=== PATIENT | female | born 1950 | race Caucasian/White ===

== ENCOUNTER 2019-09-28 09:28 | Inpatient (IN) | payer MEDICARE ==
[~2019-09-28] VITALS: Ht 162.6 cm; Wt 115.7 kg
--- NOTE | 2019-09-28 10:02 | NUR ---
PT DAUGHTER EDITH Ivy/[phone]. LIVES IN [facility] AND IS CURRENTLY ON DAY 8 OF COVD QUARANTINE. PER DAUGHTER, PT THINKS SHE IS MARRYING ELIECER ET IS WITH HIS TRIPLETS. PT ALSO THINKS [employer] IS PICKING HER UP TODAY TO GO TO A September CELEBRATION IN [place], [place] TO MEET CHELSI WYMAN. 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 SHE BELIEVES HE IS ELIECER REINCARNATED. DAUGHTER FURTHER STATES SHE HAS A TEXT MESSAGE FROM HER MOTHER YESTERDAY STATING SHE IS GOING TO CUT THE BABIES OUT OF HER STOMACH. DAUGHTER IS FEARFUL FOR PT SAFETY. DAUGHTER FURTHER STATES PT IS USUALLY VERY UNCOOPERATIVE WITH CARE.
[2019-09-28 10:14] LABS: BASOPHILS 0.4 % (0-2); EOSINOPHILS 1.4 % (0-7); HEMATOCRIT 46.2 % (36.0-48.0); HEMOGLOBIN 14.4 g/dL (12-16); IMMATURE GRANULOCYTES 0.5 % (0-5); LYMPHOCYTES 25.6 % (15-50); MCH 29.3 pg (26.0-34.0); MCHC 31.2 g/dL (31.0-37.0); MCV 94.1 fL (80.0-100.0); MEAN PLATELET VOLUME 9.4 fL (7.4-10.4); MONOCYTES 6.8 % (2-11); NEUTROPHILS 65.3 % (40-80); PLATELET COUNT 288 10x3/uL (130-400); RBC 4.91 10x6/uL (4.00-5.40); RDW 14.1 % (11.5-14.5); WBC 11.1 10x3/uL (4.8-10.8)
[2019-09-28 10:27] LABS: CALC OSMOLALITY 285 mosm/kg (275-300); CALCIUM 9.2 mg/dL (8.5-10.1); CARBON DIOXIDE 30.1 mmol/L (21.0-32.0); CHLORIDE - SERUM 102 mmol/L (98-107); CREATININE - SERUM 1.1 mg/dL (0.6-1.3); GLUCOSE 144 mg/dL (74-106); POTASSIUM - SERUM 3.9 mmol/L (3.5-5.1); SODIUM 139 mmol/L (136-145); UREA NITROGEN 27 mg/dL (7-18); eGFR NON AFRICAN AMERICAN 52 mL/min (90-120)
[2019-09-28 10:30] LABS: INR 1.09 (0.85-1.17)
[2019-09-28 10:31] LABS: APTT 30.3 SECONDS (22.8-39.4)
[2019-09-28] MEDS ORDERED: COUMADIN1 MG PO (10:39)
[2019-09-28] MEDS ORDERED: GLUCOTROL ER2.5 MG PO (10:39)
[2019-09-28] MEDS ORDERED: COREG12.5 MG PO (10:41)
[2019-09-28] MEDS ORDERED: TORSEMIDE20 MG PO (10:41)
[2019-09-28] MEDS ORDERED: ALDACTONE25 MG PO ×2 (10:42→17:18)
[2019-09-28] MEDS ORDERED: ZOCOR40 MG PO (10:43)
[2019-09-28] MEDS ORDERED: MOBIC7.5 MG PO (10:43)
[2019-09-28] MEDS ORDERED: HYDROCODON-ACE1 EAC2 PO (10:43)
--- NOTE | 2019-09-28 11:04 | NUR ---
ALEXEI WITH JAIL AT PT BEDSIDE. PT SIGNS PAPERWORK FOR SENIOR PSYCH ADMISSION.
[2019-09-28 11:07] LABS: ALKALINE PHOSPHATASE 68 U/L (30-120); ALT (SGPT) 23 U/L (10-68); BILIRUBIN - TOTAL 0.44 mg/dL (0.2-1.3); CHOL - HDL RATIO 7.5 ratio (2.3-4.1); CHOLESTEROL, TOTAL 240 mg/dL (0-200); HDL CHOLESTEROL 32 mg/dL (32-96); MAGNESIUM - SERUM 1.8 mg/dL (1.8-2.4); PROTEIN - SERUM 7.5 g/dL (6.4-8.2); THYROID STIMULATING HORMONE 1.06 uIU/mL (0.36-3.74); TRIGLYCERIDE 403 mg/dL (30-200)
[2019-09-28 11:11] LABS: UDS - AMPHET POSITIVE QUAL (NEGATIVE); UDS - BARB NEGATIVE QUAL (NEGATIVE); UDS - BENZO NEGATIVE QUAL (NEGATIVE); UDS - COCAINE NEGATIVE QUAL (NEGATIVE); UDS - OPIATE POSITIVE QUAL (NEGATIVE); UDS - PCP NEGATIVE QUAL (NEGATIVE); UDS - THC NEGATIVE QUAL (NEGATIVE)
[2019-09-28 11:33] LABS: BILIRUBIN NEGATIVE (NEGATIVE); KETONE NEGATIVE (NEGATIVE); NITRITE NEGATIVE (NEGATIVE); UROBILINOGEN NORMAL (NORMAL)
[2019-09-28 11:34] LABS: BACTERIA MODERATE /hpf (NEGATIVE); EPITHELIAL CELLS 0-5 /hpf (0-5); HYALINE CAST OCC /lpf (NONE SEEN); RED CELLS - URINE RARE /hpf (0-5)
--- NOTE | 2019-09-28 14:00 | NUR ---
PT ADMITTED FROM [facility] ER TO [facility] PER DR. PORTILLO. PT REFUSED TO GIVE ANY INFORMATION ABOUT HERSELF AND MEDICATIONS. PT WAS FOUND IN A DRIVEWAY STATING SHE WAS WITH TRIPLETS BY ELIECER BROUGHT BACK TO LIFE AND SHE WAS GOING TO HAVE TO CUT THE BABIES EYEBALLS OUT. PT STATED PRESIDENT ZAMZAM WAS COMING TO GET HER ON AIRFORCE 1 TO GO TO THE [employer] SHOW. PT STATED SHE WAS A FULL CODE. AMBULATES. PT STATED SHE WAS HER FOR A TEST AND WAS LEAVING.
[2019-09-28 14:34] VITALS: BP 146/69; BMI 43.0
[2019-09-28 14:57] VITALS: BP 146/69
--- NOTE | 2019-09-28 14:57 | NUR ---
NURSE SPOKE WITH DAUGHTER WHO LIVES 3 HOURS AWAY. SHE STATED IN [place] HER MOTHER MOVED HERSELF TO [place] FROM [place]. DAUGHTER STATED THEY HAVE BEEN TRYING TO GET SOMEONE TO GET A BRAIN SCAN FOR A TUMOR BUT SHE KEEPS REFUSING AND THE PROCESS STARTS OVER. SHE STATED HER MOTHER WAS DOING A PAIN CLINIC AND WAS DOCTOR HOPPING SO SHE COULD GET PAIN MEDS.SHE TEXTS FAMILY WITH PARANOID THOUGHTS AND UNABLE TO UNDERSTAND HER THOUGHT PROCESS. HER KNEE SURGERY WAS IN 2006 AND DID NOT KNOW WHY SHE WAS ON PAIN MED. SHE STATED SHE WOULD ATTEMPT TO GAIN A MED LIST AND GIVE US A CALL BACK.
[2019-09-28] MEDS ORDERED: ZOFRAN4 MG PO (17:19)
[2019-09-28] MEDS ORDERED: MECLIZINE HCL25 MG PO (17:20)
[2019-09-28] MEDS ORDERED: COZAAR25 MG PO (17:24)
[2019-09-28] MEDS ORDERED: BETAPACE 120 M120 MG PO (17:24)
[2019-09-28] MEDS ORDERED: MAG-OX 400 MG400 MG PO (17:24)
[2019-09-28] MEDS ORDERED: ZYLOPRIM300 MG PO (17:25)
[2019-09-28] MEDS ORDERED: GLIPIZIDE10 MG PO (17:25)
[2019-09-28] MEDS ORDERED: OMEPRAZOLE40 MG PO (17:26)
[2019-09-28] MEDS ORDERED: MEXITIL 150 MG150 MG PO (17:26)
[2019-09-28] MEDS ORDERED: CELEBREX200 MG PO (17:27)
[2019-09-28] MEDS ORDERED: CARBATROL100 MG PO (17:27)
[2019-09-28] MEDS ORDERED: DIGOXIN250 MCG PO (17:28)
--- NOTE | 2019-09-28 17:51 | NUR ---
NURSE CALLED [facility] IN [place] AND OBTAINED MED LIST. MEDICATIONS ENTERED IN THE COMPUTER.
--- NOTE | 2019-09-28 18:57 | NUR ---
PTS DAUGHTER CALLED TO SEE IF SHE COULD GET HER HOUSE KEYS FROM THE LOCK BOX IN THE ER. [facility] NURSE RELATED THAT [facility] CASHIER GREETER SAID TO ASK HER IF SHE WANTED HER DAUGHTER TO GET HER KEYS. PT STATED "NO I DO NOT. I WANT TO GET MY PURSE TO GET MY COMB AND LIPGLOSS." INFORMED HER THAT SHE COULDNT HAVE HER PURSE WHILE ON THE UNIT AND ITS SAFELY LOCKED UP. INFOMED HER DAUGHTER EDITH, , THAT SHE REFUSED TO GIVE HER THE KEYS. WILL CONTINUE TO MONITOR.
[2019-09-28 20:00] VITALS: BP 127/74
--- NOTE | 2019-09-29 02:15 | NUR ---
B) Patient is alert and oriented to person and being in a hospital, demanding at times, I) Administered scheduled medications as ordered, redirected as needed, R) Mediation compliant, patient asked for several medications that were not on her MAR, infored patient she would need to discuss her medications with her physician, P) Continue plan of care.
[2019-09-29 08:24] VITALS: BP 135/92
--- NOTE | 2019-09-29 11:23 | NUR ---
The patient is hallucinating, she is hearing people that are not there and she is delusional as she believes she got last night and she says "My family are right outside the door and they are trying to pick me up." She is trying to push the buttons on the code box to open the door. The patient ambulates with a walker. She questioned me about all of her medications. She did not want to take the Haldol that has been prescribed. Explained to her that it is something that the would like her to have. Explianed that she can have it pill form or injection. She said she would prefer the pill. She is medication compliant, but she questioned every pill and she has to be observed to take them as she was trying to play with the pills. Continue to observe the patients behavior. Continue POC.
--- NOTE | 2019-09-29 11:56 | NUR ---
The patient asked me to look at her henok area as she believes she has some ingrown hairs that may be infected. Visualized the area and she has no sores or ingrown hairs, she asked me to look at her buttocks. That too was clear. The patient then said "Well, my brought clothes." Explained to her that no there are no clothes. She then said "He's bringing them now." Explained to her that we have to go to the dayroom. She is now trying to toilet, wash her hands and then sat back on the toilet. She is trying to manipulate staff.
--- NOTE | 2019-09-29 16:47 | NUR ---
The patient is trying to convince another female patient to come to the door to meet her . The patient's spouse is not there and in fact the patient does not have a spouse, although, she told Lachelle Paredes APN that she got last night. She told Lachelle that her is "Stewart" The patient is searching and searching for her spouse at every door. Staff have tried to explain that her spouse is not here, but her delusions are real to her.
--- NOTE | 2019-09-29 17:37 | NUR ---
The patient is very delusional she believes her spouse is outside and she wants to walk to the door. Tried to explian to her that he is not here. She is now washing her hands multiple times. Had to stop her as she continued to do it. She is walking the hallway now with her walker.
[2019-09-29 20:02] VITALS: BP 141/78
--- NOTE | 2019-09-29 21:46 | NUR ---
B.) PT IS ALERT AND ORIENTED TO SELF AND PLACE. SHE HAS POOR INSIGHT INTO HER SITUATION. SHE IS DEMANDING WITH STAFF AT TIMES. SHE IS OBSERVED TALKING TO HERSELF. I.) PROVIDED PM MEDICATIONS PRESCRIBED. REDIRECT NEEDED. R.) COMPLIANT WITH ALL MEDICATIONS. DIFFICULT TO REDIRECT AT TIMES. P.) WILL CONTINUE TO MONITOR.
--- NOTE | 2019-09-30 00:20 | NUR ---
PT RESTLESS AND PREOCCUPIED WITH THINGS IN HER ROOM. SHE RELATED THAT SHE IS ANXIOUS AND CANNOT GO TO SLEEP. ADMINISTERED PRN IM ATIVAN 0.5 MG PER ORDERS. WILL CONTINUE TO MONITOR.
--- NOTE | 2019-09-30 00:45 | NUR ---
PT RESTING CALMLY IN BED. NO DISTRESS NOTED. WILL CONTINUE TO MONITOR
[2019-09-30 13:48] VITALS: BP 120/58
--- NOTE | 2019-09-30 15:02 | NUR ---
ORIENTED TO SELF.OBSERVED TALKING WITH SOMEONE WHO WAS NOT VISIBLE TO STAFF.TEARFUL AT TIMES.COMPLIANT WITH STAFF AND MEDS.AMBULATES WITH WALKER.WILL CONTINUE WITH CURRENT PLAN OF CARE,MONITOR FOR CHANGES AND SAFETY.
--- NOTE | 2019-09-30 19:18 | PSY ---
PATIENT NAME:CURLY MARQUES MEDICAL RECORD: [id number] : 54 LOCATION:[id number] ADMISSION DATE: 09/28/19 ACCOUNT: [id number] PSYCHIATRIC EVALUATION DATE OF EVALUATION: 09/28/19 IDENTIFYING DATA: Ms. Marques is a 69-year-old female who looks moderately disheveled and older than her stated age. CHIEF COMPLAINT: I am , increased confusion and paranoia. HISTORY OF PRESENT ILLNESS: It is reported that the patient recently moved herself from [place] to [place], [place]. The patient believes that she has been impregnated by Stewart Manrique. The patient has begun stalking a man and was picked up by police at one time and released and then picked up again and referred for psychiatric care. The patient thinks that she is going to Stewart with his triplets. She also thinks that the [employer] is picking her up to go to a 28 of September celebration at [place], [place] to meet Jed Johnson. The man that she was talking with a waste elimination in [place]. She believes that he is the one that Stewart reincarnated. Conversation with daughter stated that the patient had sent her a text yesterday stating that she is going to cut the babies out of her stomach. Daughter reports they have been trying to get her a brain scan, but the patient has been refusing any medical care. The patient refuses to provide any information. PAST MEDICAL HISTORY: The patient has had a knee replacement. The patient reports that she also has had a cardiac history. The patient reports that she is a diabetic and she has cardiomyopathy and high blood pressure. PAST PSYCHIATRIC HISTORY: The patient denies any past mental health issues. TRAUMA: The pt refuses to discuss. FAMILY HISTORY: The patient will not communicate. ALLERGIES: INCLUDE BENZALKONIUM CHLORIDE. MEDICATIONS: We are currently looking for a list. Daughter was not able to articulate which medication the patient was on. The patient does states that she believes that she was on Sotalol and also she takes Tylenol and glipizide and Cerebyx. SOCIAL HISTORY: The patient reports that she is , that she has 3 children and 7 grandchildren. 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 The patient reports that in the , she worked for the [employer]. 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 The patient denies any alcohol, smoking or recreational drug use. MENTAL STATUS EXAM: The patient is alert and oriented to person, place and time. Disoriented to situation and events. The patient's speech is pressured. The patient's eye contact is good. Her posture is within normal limits. There is not any evidence of psychomotor retardation or agitation. Her mood is depressed, very anxious. Her affect is restricted. The patient does not exhibit any suicidal ideation or homicidal ideation. The patient does not appear to be attending to either visual or auditory hallucinations, but does have delusions. Her thought processes are tangential. Her memory, concentration, and abstraction abilities are moderately impaired. She denies that she will harm herself or others. The patient is highly impulsive and has impaired judgment. Strength: Ability to communicate her needs Liability: Psychosocial stressors ASSESSMENT: Traer I: ACUTE Psychosis. Traer II: Deferred Traer III: DM DJD CHF GERD Traer IV: Moderate Traer V: Global assessment of functioning is 30 PLAN: The patient has voluntarily consented to admission. The patient does not stabilize and continue to voluntarily consent to admission remain may be need to consider a 72-hour hold. Case management is trying to contact family to obtain more patient history. The patient is admitted to the hospital secondary to her delusions of being , her behaviors and confused behaviors associated with a dementing illness or psychiatric illness. She will be comprehensively evaluated from both a medical, psychological, and social standpoint. She will be treated with both mood stabilizing, cognitive and memory enhancing medications. Her long-term prognosis is guarded. Dictated By: Lachelle Paredes APN I have interviewed/examined the above patient and agree with these documented findings. TRANSINT:[id number] Voice Confirmation ID: [id number] DOCUMENT ID: [id number] Dictated By: LACHELLE PAREDES I have interviewed/examined the above patient and agree with these documented findings. ELKE PORTILLO MD at 1918 at 1119 CC: [id number] DICTATION DATE: 09/28/19 1731 SECOND HELPER: 09/28/19 2249 ADM IN [facility] [address] [place] [id number]
--- NOTE | 2019-09-30 19:55 | NUR ---
RECEIVED IN DAYROOM. SITTING IN A CHAIR WITH PEERS AT HER SIDE. CALM AND COOPERATIVE WITH CARE AND ASSESSMENT. NO DELSUIONAL STATEMENTS VOICED AT THIS TIME. REDIRECT AND REORIENT NEEDED. CONTINUES TO SIT CALMLY IN DAYROOM. CONTINUE PLAN OF CARE.
[2019-09-30 20:24] VITALS: BP 129/80
[2019-10-01 08:41] VITALS: BP 153/92
[2019-10-01 10:23] VITALS: Ht 162.6 cm; Wt 115.7 kg
[2019-10-01 20:10] VITALS: BP 119/69
--- NOTE | 2019-10-01 21:42 | NUR ---
RECEIVED IN DAYROOM. SITTING IN A CHAIR WITH PEERS AT HER SIDE. CALM AND COOPERATIVE WITH CARE AND ASSESSMENT. NO DELSIONAL STATEMENTS VOICED THIS EVENING. ENCOURAGE TO EXPESS NEEDS. RESTING IN BED WITH EYES CLOSED AT THIS TIME. CONTINUE PLAN OF CARE.
[2019-10-02 11:40] VITALS: BP 141/76
--- NOTE | 2019-10-02 12:13 | NUR ---
RECEIVED IN HALLWAY OUTSIDE OF NURSES STATION. CALM AND COOPERATIVE WITH CARE AND ASSESSMENT. STILL BELEIVES SHE GOT TO ELIECER. REDIRECT AND REOREINT NEEDED. EATING AT THIS TIME. CONTINUE PLAN OF CARE.
[2019-10-02 20:53] VITALS: BP 149/67
--- NOTE | 2019-10-02 21:57 | NUR ---
RECEIVED IN DAYROOM. SITTING IN A CHAIR WITH PEERS AT HER SIDE. RESISTANT TO CARE AT TIMES. RESTLESS. NO SIGNS OF AGGRESSION. REDIRECT AND REORIENT NEEDED. SITTING OUTSIDE OF NURSES STATION IN RECLINER AT THIS TIME. CONTINUE PLAN OF CARE.
--- NOTE | 2019-10-02 22:24 | NUR ---
RECEIVED IN DAYROOM. SITTING IN A CHAIR WITH PEERS AT HER SIDE. CALM AND COOPERATIVE WITH CARE AND ASSESSMENT. DEMANDING AT TIMES. STATES HEADAHCE AND GENERALIZED PAIN OF 7. TYLENOL 650 MG PO PRN GIVEN FOR PAIN. RESTING IN BED EYES OPEN AT THIS TIME. CONTINUE PLAN OF CARE.
--- NOTE | 2019-10-03 08:15 | NUR ---
RECEIVED IN HALLWAY OUTSIDE OF NURSES STATION. VERY ANXIOUS AND AGITATED. SCREAMING. EXIT SEEKING. BANGING ON DOORS. YELLING AT STAFF THAT SHE IS CURLY KLEIN AND HER IS ELIECER KLEIN AND WE CANNOT LOCK HER OUT OF HER OWN HOUSE AND KEEP HER OUT OF THE LIBERTARIAN THAT IS GOING ON IN HER HOUSE. BECAME AGGRESSIVE AND VIOLENT WITH REDIRECTION ATTEMPTS. UNABLE TO REDIRECT. PRN ATIVAN 0.5 MG IM AND PRN HALDOL 2 MG IM GIVEN. PATIENT YELLING AT STAFF THAT SHE IS WITH TRIPLETS AND IF THE ATIVAN OR HALDOL HARMS ANY OF THE BABIES THEN HER AND HER ELIECER KLEIN WILL RAH THE HOSPITAL. WILL CONTINUE TO MONITOR.
[2019-10-03 09:19] VITALS: BP 136/80
--- NOTE | 2019-10-03 14:11 | NUR ---
Nutrition Follow-up: Diet: Diabetic PO intake: ~87% average x last 9 meals Last BM: none recorded since admit x 5 days Wt: 248.4# (10/01/19); Admit WT: 250# (09/28/19) Meds noted: remeron, glipizide. Labs noted: POC Glu 139(H) Recommend continue current diet. RD following.
--- NOTE | 2019-10-03 16:20 | NUR ---
PATIENT ANXIOUS AND AGITATED AGAIN. BECAME AGGRESSIVE WITH REDIRECTION. PRN ATIVAN AND HALDOL GIVEN.
[2019-10-03 20:03] VITALS: BP 129/60
--- NOTE | 2019-10-04 00:29 | NUR ---
B.) PT IS ALERT AND ORIENTED TO SELF ONLY. SHE IS USING A WALKER TO ASSIST WITH AMBULATION. SHE RELATED TO STAFF THAT SHE HAD GIVEN IN THE BATHROOM AND THE BABY IS STUCK. SHE DENIES IS WHEN ASKED BY STAFF. SHE IS HALLUCINATING VISUALLY. I.) PROVIDED PM MEDICATIONS PRESCRIBED. REDIRECT OFTEN. R.) COMPLIANT WITH ALL MEDICATIONS. DIFFICULT TO REDIRECT AT TIMES. P.) WILL CONTINUE TO MONITOR.
[2019-10-04 09:36] VITALS: BP 132/73
--- NOTE | 2019-10-04 12:18 | NUR ---
SPOKE TO PT DAUGHTER ABOUT HOW SHE HAD BEEN. NURSE GAVE AN UPDATE FROM THE NIGHT. SHE IS STILL HAVING HALLUNCINATIONS AND DELUSIONS THINKING SHE IS HAVING BABIES. SHE IS COMPLIANT WITH MEDS AND WITH REQUESTS FROM THE STAFF. SHE VERBALIZIED UNDERSTANDING ABOUT HER SITUATION. SHE THANKED US.
--- NOTE | 2019-10-04 14:18 | NUR ---
B) PATIENT IS ANXIOUS AND ALERT TO SELF ONLY. CALM AND COOPERATIVE WITH CARE AND ASSESSMENT. SHE IS TALKING TO VOICES TO UNSEEN OTHERS. I) PRESCRIBED MEDICATIONS ADMINISTERED. REDIRECT AND REORIENT NEEDED. R) COMPLIANT WITH MEDICATIONS. PLEASANT AND SOCIAL WITH PEERS AND STAFF. P) CONTINUE PLAN OF CARE.
[2019-10-04 20:19] VITALS: BP 128/86
--- NOTE | 2019-10-05 00:57 | NUR ---
RECEIVED PATIENT IN DAYROOM, SHE WAS PLEASANT, SHE CAN MAKE HER NEEDS KNOWN, COMPLIANT WITH MED, HOWEVER DURING SHOWER TIME SHE BECAME ARGUMENTATIVE, BENEFITS EXPLAINED TO HER, SHE THEN WAS CONFUSED AND WAS PUSHING NUMBERS ON THE KEYPAD TRYING TO GET OUT AND SHE WAS EASILY REDIRECTED TO HER ROOM.
--- NOTE | 2019-10-05 04:29 | NUR ---
PATIENT WAS GIVEN HALDOL AND ATIVAN AROUND 2 AM FOR EXTREME PSYCHOSIS AND ANXIETY. SHE WAS UNDERNEATH HER SINK HOLDING ON TO THE PLUMBING BECAUSE THE THOUGHT IT WAS A TORNADO AND SHE WAS ALSO EXIT SEEKING. RESULTS WERE EFFECTIVE.
[2019-10-05 14:10] VITALS: BP 155/68
--- NOTE | 2019-10-05 18:45 | NUR ---
The patient is bizarre in her behavior today. She is ambulating on her walker. She is pleasant, but she is attending to her voices as she covers her mouth and she is looking over her shoulder. Asked her if she slept, she said "Oh, I slept go." Provide prescribed meds. The patient is compliant with meds. Continue POC.
[2019-10-05 20:08] VITALS: BP 145/76
--- NOTE | 2019-10-06 04:29 | NUR ---
RECEIVED IN DAYROOM SOCIALIZING WITH PEERS. CALM AND COOPERATIVE WITH CARE AND ASSESSMENT. REDIRECT AND REORIENT NEEDED. COMPLIANT WITH MEDICATIONS. WILL CONTINUE PLAN OF CARE.
[2019-10-06 09:54] VITALS: BP 135/72
--- NOTE | 2019-10-06 10:24 | NUR ---
The patient is bizarre in behavior. She has poor insight into her situation. She is attending, but it is less as she is sleeping. She is watchful. Provide prescribed meds. The patient is compliant with meds. She likes to drink water all day long. Provide prescribed meds. The patient is compliant with meds. 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 Continue POC.
--- NOTE | 2019-10-06 18:10 | NUR ---
PT DAUGHTER CALLED AND PASSCODE GIVEN. NURSE REPORTED PT WAS DOING BETTER TODAY WITH NO BIZARRE STATEMENTS REPORTED. WHEN NURSE GAVE PT THE PHONE SHE STATED THAT SHE WAS CRYING CAUSE SHE WAS WAITING FOR HER CHILDREN TO CALL HER. SHE SPOKE WITH DAUGHTER AND STATED SHE FELT BETTER AND SHE WAS HAPPY SHE CALLED.
[2019-10-06 20:00] VITALS: BP 169/81
--- NOTE | 2019-10-06 23:38 | NUR ---
PATIENT IN HALLWAY. TOOK OFF RUNNING INTO ROOM. ATTEMPTED TO GET UNDER SINK. VERY CONFUSED. INCREASING ANXIETY. PRN ATIVAN 0.5 MG IM GIVEN FOR ANXIETY. PRN HALDOL 2 MG IM GIVEN FOR UNSAFE PSYCHOTIC BEHAVIOR. CONTINUE TO MONITOR FOR SAFETY.
[2019-10-07 09:18] VITALS: BP 114/54
--- NOTE | 2019-10-07 12:00 | NUR ---
RECEIVED IN HALLWAY OUTSIDE OF NURSES STATION. CALM AND COOPERATIVE WITH CARE AND ASSESSMENT. NO DELUSIONAL STATEMENTS MADE TODAY. REDIRECT AND REORIENT NEEDED. EATING AT THIS TIME. CONTINUE PLAN OF CARE.
--- NOTE | 2019-10-07 19:44 | NUR ---
RECEIVED IN DAYROOM. SITTING IN A RECLINER WITH PEERS AT HER SIDE. CALM AND COOPERATIVE WITH CARE AND ASSESSMENT. NO DELSUIONAL STATEMENTS VOICED THIS EVENING. REDIRECT AND REORIENT NEEDED. CONTINUES TO SIT CALMLY IN DAYROOM. CONTINUE PLAN OF CARE.
[2019-10-07 20:06] VITALS: BP 139/56
--- NOTE | 2019-10-08 12:00 | NUR ---
RECEIVED IN HALLWAY OUTSIDE OF NURSES STATION. CALM AND COOPERATIVE WITH CARE AND ASSESSMENT. PATIENT HALLUCINATING AND TALKING TO UNSEEN OTHERS. PATIENT STATES TO STAFF THAT SHE IS NOT WITH TRIPLETS AND THAT SHE WAS JUST FANTASIZING ABOUT HAVING MORE CHILDREN WITH ELIECER. REDIRECT AND REORIENT NEEDED. EATING AT THIS TIME. CONTINUE PLAN OF CARE.
[2019-10-08 19:51] VITALS: BP 127/75
--- NOTE | 2019-10-08 20:35 | NUR ---
RECEIVED IN DAYROOM. SITTING IN A CHAIR WITH PEERS AT HER SIDE. CALM AND COOPERATIVE WITH CARE AND ASSESSMENT. NO SIGNS OF HALLUCINATIONS. REDIRECT AND REORIENT NEEDED. CONTINUES TO SIT CALMLY IN DAYROOM. CONTINUE PLAN OF CARE.
--- NOTE | 2019-10-09 07:15 | NUR ---
REC'D PT IN BED WITH EYES OPEN. PT DEMANDING STAFF TO LEAVE ROOM AND REFUSED TO GET OUT OF BED. STAFF EXPLAINED TO PT THAT ALL PTS HAVE TO GET UP AND ATTEND BREAKFAST. PT BECAME AGGRESSIVE WITH STAFF AT THIS TIME. PRN ATIVAN 0.5 MG IM AND HALDOL 2MG IM GIVEN PER PRN ORDERS. REDIRECTED AND REORIENTED NEEDED. PT PUT HER SELF IN THE FLOOR AND REFUSED TO GET UP. PT ASSISTED UP PER STAFF TO RECLINING CHAIR. FALL PRECAUTIONS IN PLACE. WILL CPOC.
[2019-10-09 10:00] VITALS: BP 90/48
--- NOTE | 2019-10-09 12:00 | NUR ---
RECEIVED IN HALLWAY OUTSIDE OF NURSES STATION. CALM AND COOPERATIVE WITH CARE AND ASSESSMENT. STILL HALLUCINATING AND TALKING TO UNSEEN OTHERS. VERY DELUSIONAL. REDIRECT AND REORIENT NEEDED. EATING AT THIS TIME. CONTINUE PLAN OF CARE.
[2019-10-09 14:08] LABS: HEMOGLOBIN 13.8 g/dL (12-16); LYMPHOCYTES 27.8 % (15-50); MCH 29.7 pg (26.0-34.0); MCHC 32.1 g/dL (31.0-37.0); MCV 92.7 fL (80.0-100.0); MEAN PLATELET VOLUME 9.6 fL (7.4-10.4); NEUTROPHILS 67.5 % (40-80); PLATELET COUNT 323 10x3/uL (130-400); RBC 4.64 10x6/uL (4.00-5.40); RDW 13.5 % (11.5-14.5); WBC 11.2 10x3/uL (4.8-10.8)
--- NOTE | 2019-10-09 15:08 | PN ---
PATIENT:CURLY MARQUES MEDICAL RECORD: [id number] LOCATION:[facility] ADMISSION DATE: 09/28/19 PROGRESS NOTE DATE OF SERVICE: 10/08/2019 SUBJECTIVE: The patient's case was discussed with staff. She has no new complaint. OBJECTIVE: The patient is mostly oriented. Her mood is euthymic. Her affect is appropriate. Thought processes are circumstantial. Memory, concentration, and abstraction abilities are impaired. ASSESSMENT: Dementia. PLAN: Brief supportive and educational interventions were made. The patient's current medications have been reviewed. I am going to reduce the dose of her Geodon. I am also going to start her on Namenda. TRANSINT:[id number] Voice Confirmation ID: [id number] DOCUMENT ID: [id number] ELKE PORTILLO MD at 1508 CC: [id number] DICTATION DATE: 10/08/19 1518 COMMERCIAL REAL ESTATE ATTORNEY: 10/08/19 2329 ADM IN [place] [id number] [place] [id number]
[2019-10-09 20:11] VITALS: BP 137/82
--- NOTE | 2019-10-09 20:43 | NUR ---
RECEIVED IN DAYROOM. SITTING IN A CHAIR WITH PEERS AT HER SIDE. CALM AND COOPERATIVE WITH CARE AND ASSESSMENT. NO SIGNS OF AGGRESSION. REDIRECT AND REORIENT NEEDED. CONTINUES TO SIT CALMLY IN DAYROOM. CONTINUES TO SIT CALMLY IN DAYROOM. CONTINUE PLAN OF CARE.
[2019-10-10 10:28] VITALS: BP 143/60
--- NOTE | 2019-10-10 11:23 | NUR ---
Nutrition Follow-up: Diet: Diabetic PO intake: ~81% average x last 9 meals Last BM: 10/05/19. Wt: 250# (10/07/19); Admit Wt: 250# (09/28/19) Meds noted: glipizide, MagOx. Labs noted: POC Glu 137(H) Recommend continue current diet. RD following.
--- NOTE | 2019-10-10 11:42 | NUR ---
The patient is awake and alert. Have not noted her attending to voices. The patient ambulates independently. She is calm and pleasant. She denies any suicidal ideations. Provide prescribed meds. The patient is compliant with meds. Continue POC.
--- NOTE | 2019-10-10 15:43 | NUR ---
PT DAUGHTER CALLED TO GET AN UPDATE AND TO CHECK VISITING HOURS.
--- NOTE | 2019-10-10 16:23 | PN ---
PATIENT:CURLY MARQUES MEDICAL RECORD: [id number] LOCATION:[facility] ADMISSION DATE: 09/28/19 PROGRESS NOTE DATE OF SERVICE: 10/09/2019 SUBJECTIVE: The patient's case was discussed with staff. She has no new complaint. OBJECTIVE: The patient is in good behavioral control, but earlier was quite agitated. She has been aggressive, but has not risen to the level of requiring p.r.n. medication. The patient came to us with paperwork indicating she had schizophrenia. She does not have schizophrenia. There is no psychiatric longitudinal history that she reports her family confirms this. Her clinical presentation is not consistent with schizophrenia. It is consistent with dementia. The delusion she had on presentation are associated with a dementing process and not an underlying thinking disorder. ASSESSMENT: Senile dementia of the Alzheimer's type with behavioral disturbances. PLAN: The patient's medications have been reviewed. She will be maintained on antipsychotic medication because of her agitation. I will titrate the dose of the Namenda upward. Arrangements are being made to assist with placement. TRANSINT:[id number] Voice Confirmation ID: [id number] DOCUMENT ID: [id number] ELKE PORTILLO MD at 1623 CC: [id number] DICTATION DATE: 10/09/19 1526 CONTROLS DESIGNER: 10/09/19 2135 ADM IN [facility] [address] [place] [address]
[2019-10-10 20:00] VITALS: BP 125/59
--- NOTE | 2019-10-10 20:46 | NUR ---
RECEIVED IN DAYROOM. SOCIALIZING WITH OTHER PATIENTS. CALM AND COOPERATIVE WITH CARE AND ASSESSMENT. NO BEHAVIORS AND NO DELUSIONAL STATEMENTS MADE. REDIRECT AND REORIENT NEEDED. PARTICIPATING IN GROUP AT THIS TIME. CONTINUE PLAN OF CARE.
[2019-10-11 10:11] VITALS: BP 173/77
--- NOTE | 2019-10-11 11:55 | NUR ---
PT REFUSED TO SPEAK WITH DR. PORTILLO OVER ZOOM DURING ROUNDING STATING "THATS MY DOCTOR. ANNIKA NEVER MET THAT MAN BEFORE." PT REFUSED TO SPEAK WITH DOCTOR AND REFUSED A.M. MEDS. STAFF ATTEMPTED TO REDIRECT HER BEHAVIOR. UNABLE TO DO SO AT THIS TIME.
--- NOTE | 2019-10-11 13:39 | NUR ---
ORIENTED TO SELF ONLY.REFUSING MEDS.STATES"I'M NOT GOING TO TALK ABOUT ANYTING PERSONAL " WHEN ASKED WHERE WE ARE OR ASKED WHY SHE WANT TAKE HER MEDS.NO BEHAVIORS OTHER THAN PREVIOUSLY MENTIONED OBSERVED.WILL CONTINUE WITH CURRENT PLAN OF CARE,MONITOR FOR SAFETY AND CHANGES.
--- NOTE | 2019-10-11 16:51 | PN ---
PATIENT:CURLY MARQUES MEDICAL RECORD: [id number] LOCATION:[facility] ADMISSION DATE: 09/28/19 PROGRESS NOTE DATE OF SERVICE: 10/10/2019 SUBJECTIVE: The patient's case was discussed with staff. She has no new complaint. OBJECTIVE: The patient is in good behavioral control with limited insight about her situation. She tolerates her medicines well. ASSESSMENT: Dementia. PLAN: The patient is calm and cooperative. Current medicines have been reviewed. TRANSINT:[id number] Voice Confirmation ID: [id number] DOCUMENT ID: [id number] ELKE PORTILLO MD at 1651 CC: [id number] DICTATION DATE: 10/10/19 1706 LEAD RAMP SERVICE MAN: 10/10/192001 ADM IN [facility] [address] [place] [address]
--- NOTE | 2019-10-11 17:27 | NUR ---
PT DAUGHTER CAME TO VISIT. PT DID NOT WANT TO SPEAK WITH DAUGHTER. NURSE GAVE DAUGHTER A FACESHEET. DAUGHTER ASKED WHERE THE SHIZOPHERNIA DIAGNOSIS CAME FROM. NURSE CHECKED THE CHART FOR THE PAPERWORK AND DID NOT SEE SAID DIAGNOSIS. NURSE EXPLAINED THE DOCTOR THAT ACCESS TO SOME PAPERWORK WE MIGHT NOT BE ABLE TO SEE. DAUGHTER ASKED IF THE DOCTOR WOULD GIVE HER A CALL. NURSE STATED THAT WE WOULD FIGURE OUT TO DO FAMILY CALLS ON THE ZOOM AND GET BACK WITH THEM. DAUGHTER VERBALIZIED UNDERSTANDING. NURSE EXPLAINED HER BEHAVIOR CHANGED THIS MORNING FROM WHEN THE LADY CAME TO SPEAK WITH HER. PT STATED THAT PERSONAL INFORMATION AND I WONT TALK ABOUT IT." NURSE ALSO EXPLAINED THAT THE PT CANT HOLD IN DEPTH CONVERSIONS SHE WILL STOP TALKING WHEN MORE IN DEPTH QUESTIONS HAPPEN. PT IS GUARDED AND THATS THE PT WAY OF CONCEAL HER MEMORY LOSS. THEY VERBALIZIED SOME UNDERSTANDING.
[2019-10-11 19:36] VITALS: BP 127/61
--- NOTE | 2019-10-12 01:42 | NUR ---
B) Patient is alert and oriented to person and place, needy at times, attention seeking, will follow instructions, I) Administered scheduled medications as ordered, PRN Tylenol 650 mg PO given at 00:35 for generalized pain. R) Medication compliant, sleeping now quietly in her room, P) Continue plan of care.
[2019-10-12 09:41] VITALS: BP 163/78
--- NOTE | 2019-10-12 11:18 | NUR ---
The patient is awake and alert, she is calm. No noting of her attending to voices. She is blunted in affect. She is interacting well in groups today. She ambulates with a walker. Provide prescribed medications. The patient is compliant with meds. She has not made any delusional remarks about or being to Stewart. She has not shown any aggression. Continue POC.
--- NOTE | 2019-10-12 12:20 | NUR ---
NAILA CONTACTED PT'S DTR EDITH TO SCHEDULE PHONE TIME WITH MD ON WEDNESDAY 10/11 AT 1130. NAILA LEFT MESSAGE.
--- NOTE | 2019-10-12 13:12 | PN ---
PATIENT:CURLY MARQUES MEDICAL RECORD: [id number] LOCATION:[facility] ADMISSION DATE: 09/28/19 PROGRESS NOTE DATE OF SERVICE: 10/11/2019 SUBJECTIVE: The patient's case was discussed with staff. She has no new complaint. OBJECTIVE: The patient is impaired cognitively and for some reason, she will not to explain she refused to take her medicines this morning. Staff tells me that she is continuing to be delusional. ASSESSMENT: Dementia. PLAN: The patient presents a significant management problem. If she will not take medications, it is not really possible to treat her. Medications that have been prescribed so far have not been very effective. Attempts to persuade her to participate in treatment and accept medications will continued to be made. TRANSINT:[id number] Voice Confirmation ID: [id number] DOCUMENT ID: [id number] ELKE PORTILLO MD at 1312 CC: [id number] DICTATION DATE: 10/11/19 180 XEROX MACHINE ASSEMBLER: 10/11/19 2107 ADM IN [place] [id number] [place] [address]
[2019-10-12 20:00] VITALS: BP 122/65
--- NOTE | 2019-10-12 21:57 | NUR ---
B.) PT IS ALERT AND ORIENTED TO SELF ONLY. SHE IS ABLE TO VOICE NEEDS AND WANTS. SHE IS ABLE TO AMBULATE ON HER OWN BUT IS UNSTEADY AT TIMES. SHE IS OBSERVED ATTENDING TO AUDITORY HALLUCINATIONS. SHE IS COOPERATIVE WITH STAFF. I.) PROVIDED PM MEDICATIONS PRESCRIBED. REDIRECT OFTEN. R.) COMPLIANT WITH ALL MEDICATIONS. EASY TO REDIRECT. P.) WILL CONTINUE TO MONITOR.
[2019-10-13 09:51] VITALS: BP 137/72
--- NOTE | 2019-10-13 10:09 | NUR ---
The patient is awake this am, she awakens to eat, and take medications. She is quietly attending to her voices. She is not telling staff she is today, but she is talking to someone that is not there and staring blankly. She ambulates with a walker and sometimes does not use it. Provide prescribed meds. The patient is compliant with meds. She is not aggressive today, her affect is flat to blunted. Continue POC.
--- NOTE | 2019-10-13 11:52 | NUR ---
The patient sat in the vanessa chair and urinated. It is all over her upto her neck and the chair. Offered to help her change and shower. She said "No, I'll wait until after lunch." Explained to her that "No, ma'am you are soaked, you can't sit in all these chairs wet." She argued and walked away. Staff assisted her to ambulate with CPI maneuvers to take her to the shower and change. She is behaving in a paranoid manner. She looked around like she was very frightened, but she decided to take a shower as long as she can have her own clothes.
[2019-10-13 20:00] VITALS: BP 135/68
--- NOTE | 2019-10-13 22:45 | NUR ---
B.) PT IS ALERT AND ORIENTED TO SELF AND SITUATION AT TIMES. SHE IS ABLE TO AMBUALTE BUT IS UNSTEADY ON HER FEET. SHE IS RECEIVED IN THE DAYROOM SOCIALIZING WITH PEERS. SHE IS CALM AND COOPERATIVE. NO HALLUCINATIONS NOTED THIS SHIFT. I.) PROVIDED PM MEDICATIONS PRESCRIBED. REDIRECT NEEDED. R.) COMPLIANT WITH ALL MEDICATIONS PRESCRIBED. EASY TO REDIRECT. P.) WILL CONTINUE TO MONITOR.
[2019-10-14 08:44] VITALS: BP 135/86
--- NOTE | 2019-10-14 10:28 | NUR ---
The patient is pleasnt this am, she said today is going to be a better day. She ate her breakfast and now she is laying on the couch. She is having some hallucinations, but she is quieter, she stares blankly and she is watchful. Provide prescribed meds. The patient picks and chooses which meds she will take. Continue POC.
[2019-10-14 19:19] VITALS: BP 135/64
--- NOTE | 2019-10-14 20:03 | NUR ---
RECEIVED IN DAYROOM. SITTING IN A CHAIR WITH PEERS AT HER SIDE. CALM AND COOPERATIVE WITH CARE AND ASSESSMENT. NOT SOCIALIZING WITH PEERS AT THIS TIME. ENCOURAGE TO EXPRESS NEEDS. CONTINUES TO SIT CALMLY IN DAYROOM. CONTINUE PLAN OF CARE.
[2019-10-15 08:46] VITALS: BP 145/75
--- NOTE | 2019-10-15 09:00 | NUR ---
PT IS SITTING IN DAYROOM WITH PEERS. CALM AND COOPERATIVE WITH ASSESSMENT AT THIS. PT NOTED TALKING TO UNSEEN OTHERS. PRESCRIBED MEDS PROVIDED ORDERED. MED COMPLIANT. FALL PRECAUTIONS IN PLACE. WILL CPOC.
--- NOTE | 2019-10-15 20:00 | NUR ---
RECEIVED IN DAYROOM. SITTING IN A CHAIR WITH PEERS AT HER SIDE. CALM AND COOPERATIVE WITH CARE AND ASSESSMENT. ENCOURAGE TO EXPRESS NEEDS. REDIRECT AND REORIENT NEEDED. CONTINUES TO SIT CALMLY IN DAYROOM. CONTINUE PLAN OF CARE.
[2019-10-15 20:18] VITALS: BP 114/79
--- NOTE | 2019-10-16 09:00 | NUR ---
PT RESTING ON COUCH IN DAYROOM. CALM AND COOPERATIVE WITH ASSESSMENT. PRESCRIBED MEDS PROVIDED ORDERED. MED COMPLIANT. PT NOTED TALKING TO UNSEEN OTHERS. FALL PRECAUTIONS IN PLACE. WILL CPOC.
[2019-10-16 09:45] VITALS: BP 172/88
--- NOTE | 2019-10-16 16:37 | PN ---
PATIENT:CURLY MARQUES MEDICAL RECORD: [id number] LOCATION:[facility] ADMISSION DATE: 09/28/19 PROGRESS NOTE DATE OF SERVICE: 10/15/2019 SUBJECTIVE: The patient's case was discussed with staff. She has no new complaint. OBJECTIVE: The patient is partially oriented. She does not want to answer questions. I think it is because she cannot answer them correctly, although there certainly is a paranoid flavor to how she is responding. ASSESSMENT: Dementia. PLAN: The patient will be maintained on current medications, which she is not consistently taking. I talked with her daughter today and the patient does not have a long history of psychiatric treatment. In fact, she has no history of psychiatric treatment, but she does have a long history of not functioning normally. She has always been somewhat hypervigilant, paranoid, odd and difficult to get along with. It has never been enough to bring her to the attention of authorities, but it certainly has interfered with her interpersonal relationships. In my opinion, the patient has dementia. She does have a family history of this with her mother being diagnosed with this disease. I do believe she is going to require [id number]-day supervision. I have discussed this with the daughter as well. TRANSINT:[id number] Voice Confirmation ID: [id number] DOCUMENT ID: [id number] ELKE PORTILLO MD at 1637 CC: [id number] DICTATION DATE: 10/15/19 174 COMMODITIES TRADER: 10/15/190 ADM IN [place] [id number] [place] [address]
[2019-10-16 20:01] VITALS: BP 145/51
--- NOTE | 2019-10-17 02:48 | NUR ---
B) Patient is alert and oriented to person and place, no delusions or hallucinations noted this shift, I) Administered scheduled medications as ordered, monitored for safety R) Mediation compliant, social with peers, follows instructions P) Continue plan of care.
[2019-10-17 07:52] VITALS: BP 171/84
--- NOTE | 2019-10-17 10:18 | NUR ---
The patient did not want to take her medication until she had a carton of milk. She refused to take them until she got the milk. She told Jeronimo Hobbs RN that she did not want her glipizide this am. She waited until this nurse gave it to her. She ambulates independently. She is not showing any indication of hallucinations, but she is bizarre in behavior and she is being demading. Provide prescribed meds. The patient is compliant with meds, but when she chooses. Continue POC.
--- NOTE | 2019-10-17 11:09 | NUR ---
Nutrition Follow-up: Diet: Diabetic PO intake: 100% x last 7 meals Last BM: 10/17/19. WT: 249.4# (10/14/19). Admit Wt: 250# (09/28/19) Meds noted: glipizide, MagOx. Labs noted: POC Glu 103(WNL) Recommend continue current diet. RD following.
--- NOTE | 2019-10-17 13:25 | NUR ---
Spoke to the patient and let her know the DrManuel prescribed a new medication. She said "Well, I'm not gonna take it, but I'll talk to him soon." When I approached the patient she was smiling and talking to unseen others."
[2019-10-17 20:33] VITALS: BP 143/68
--- NOTE | 2019-10-17 21:57 | NUR ---
B.) PT IS ALERT AND ORIENTED TO SELF AND PLACE. SHE IS ABLE TO AMBULATE ON HER OWN AND MAKE HER NEEDS KNOWN. SHE IS CALM AND COOPERATIVE WITH STAFF. SHE REQUESTED A PRN TYLENOL FOR KNEE PAIN. I.) PROVIDED PM MEDICATIONS. REDIRECT NEEDED. R.) COMPLIANT WITH ALL MEDICATIONS. EASY TO REDIRECT. P.) WILL CONTINUE TO MONITOR.
[2019-10-18 08:42] VITALS: BP 140/81
--- NOTE | 2019-10-18 11:03 | NUR ---
The patient is compliant with her medications, but she questions everything. She requests milk and she mentioned being and not wanting to take any new medications because of it. She ambulates, but she c/o knee pain today. She has had mobic and tylenol, see MAR. The patient is noted attending to her voices and she is bizarre in behavior as she stares out and talks to unseen others. Continue POC.
--- NOTE | 2019-10-18 13:32 | PN ---
PATIENT:CURLY MARQUES MEDICAL RECORD: [id number] LOCATION:[facility] ADMISSION DATE: 09/28/19 PROGRESS NOTE DATE OF SERVICE: 10/17/2019 SUBJECTIVE: The patient's case was discussed with staff. She has no new complaint. OBJECTIVE: The patient denies intent to harm herself or others. She is tolerating her medicines well. She is still delusional and was scheduled to be discharged, but continues to have these bizarre delusions. ASSESSMENT: Dementia. PLAN: The patient's medications have been reviewed. She is going to be started on Depakote for mood stabilization. Her long-term prognosis is guarded. TRANSINT:[id number] Voice Confirmation ID: [id number] DOCUMENT ID: [id number] ELKE PORTILLO MD at 1332 CC: [id number] DICTATION DATE: 10/17/19 1318 CORPORATE BOND TRADER: 10/17/19 2241 ADM IN [place] [address] [place] [address]
[2019-10-18 14:54] LABS: BASOPHILS 0.3 % (0-2); EOSINOPHILS 4.6 % (0-7); HEMATOCRIT 41.7 % (36.0-48.0); HEMOGLOBIN 13.4 g/dL (12-16); IMMATURE GRANULOCYTES 1.1 % (0-5); LYMPHOCYTES 28.6 % (15-50); MCH 30.8 pg (26.0-34.0); MCHC 32.1 g/dL (31.0-37.0); MCV 95.9 fL (80.0-100.0); MEAN PLATELET VOLUME 9.4 fL (7.4-10.4); MONOCYTES 5.1 % (2-11); NEUTROPHILS 60.3 % (40-80); PLATELET COUNT 301 10x3/uL (130-400); RBC 4.35 10x6/uL (4.00-5.40); WBC 10.5 10x3/uL (4.8-10.8)
[2019-10-18 15:12] LABS: ANION GAP 9.4 mmol/L (8-16); CALCIUM 8.5 mg/dL (8.5-10.1); CARBON DIOXIDE 32.2 mmol/L (21.0-32.0); CREATININE - SERUM 0.9 mg/dL (0.6-1.3); POTASSIUM - SERUM 3.6 mmol/L (3.5-5.1)
--- NOTE | 2019-10-18 16:57 | NUR ---
The patient moves from one chair to another. She is listening to her voices and she got up and walked across the room and went and sat by another patient. She keeps moving from one chair to the next multiple times over and over.
[2019-10-18 20:06] VITALS: BP 113/60
--- NOTE | 2019-10-19 01:23 | NUR ---
B) Patient is alert and oriented to person, laying on couch watching TV I) Administered scheduled medications as ordered, monitored for behaviors R) Mediation compliant, PRN Tylenol 650 mg PO given at 20:43 P) Continue plan of care.
[2019-10-19 09:11] VITALS: BP 159/85
--- NOTE | 2019-10-19 09:40 | NUR ---
The patient refused her depakote from Christiano Blakely RN. She is still seen attending to her voices, she is reacting better when she is approached by staff. She is pleasant and she interacts with the nursing students well. She has not made any paranoid statements or actions. Provide prescribed meds. The patient is compliant with meds. Continue POC.
--- NOTE | 2019-10-19 10:00 | NUR ---
PT REFUSED TO TAKE DEPAKOTE THIS A.M. PT STATED SHE HAS THE RIGHT TO REFUSE MEDS AND SHE IS NOT TAKING IT. NURSE ATTEMPTED TO ENCOURAGE PT TO TAKE MEDICATION. PT REFUSED.
--- NOTE | 2019-10-19 10:39 | NUR ---
The patient must be listening to her voices as she is staring out and then she moves from one chair to the other and then to the couch she is bizarre in her behavior.
--- NOTE | 2019-10-19 11:58 | NUR ---
NURSE ATTEMPTED TO TAKE PT APICAL PULSE AND ADMINISTER MEDICATIONS. PT ATTEMPTED TO REFUSED SEVERAL TIMES. NURSE EDUCATED PT ON REASON FOR APICAL PULSE AND REASON FOR MEDS. PT DID ALLOW ADMINISTER MEDICATION AFTER SEVERAL TIMES.
--- NOTE | 2019-10-19 12:43 | PN ---
PATIENT:CURLY MARQUES MEDICAL RECORD: [id number] LOCATION:[facility] ADMISSION DATE: 09/28/19 PROGRESS NOTE DATE OF SERVICE: 10/18/2019 SUBJECTIVE: The patient's case was discussed with staff. She has no new complaint. OBJECTIVE: The patient continues to be delusional. She refused the labs that was ordered yesterday. When I asked her any questions at all, she refuses to answer saying that it is personal and she is not going to discuss her personal business. For example, simply asking her how old she is, is personable and she would not discuss it. Asking her if she has children, is too personal and she would not discuss it. She becomes angry when asked about being . She is not consistently taking her medications, which is also problematic. She refused the Depakote that I prescribe this morning. I have talked to nursing staff about her compliance and they indicate that when she does take the medicine from them, they feel pretty certain that she is actually swallowing it. TRANSINT:[id number] Voice Confirmation ID: [id number] DOCUMENT ID: [id number] ELKE PORTILLO MD at 1243 CC: [id number] DICTATION DATE: 10/18/19 1400 ENERGY AND CONSERVATION TECHNICIAN: 10/18/19 1750 ADM IN [place] [address] [place] [address]
[2019-10-19 20:10] VITALS: BP 174/78
--- NOTE | 2019-10-20 02:29 | NUR ---
B) RECEIVED IN DAYROOM, SITTING AT TABLE WRITING A LETTER. SHE IS CALM AND COOPERATIVE TONIGHT. NO BEHAVIORS NOTED. I) ADMINISTER PRESCRIBED MEDICATIONS. REDIRECT NEEDED. R) COMPLIANT WITH MEDICATIONS. TYLENTOL 650 MG PO GIVEN FOR GENERALIZED DISCOMFORT. P) CONTINUE POC.
[2019-10-20 09:30] VITALS: BP 141/66
--- NOTE | 2019-10-20 11:27 | NUR ---
RECEIVED SITTING IN CHAIR THIS AM.TOOK SOME OF HER MEDS AND STATED SHE WOULD TAKE THE REST OF THEM TONIGHT.ENCOURAGED HER TO TAKE ALL MEDS AT THIS TIME.SHE DID COMPLY.IS AMBULATORY.KEEPS TO HERSELFWILL CONTINUE WITH CURRENT PLAN OF CARE.DENIES HEARING VOICES TODAY.
--- NOTE | 2019-10-20 18:14 | NUR ---
YELLING I'M GOING TO BE MURDERED TONIGHT.SOMEONE IN THIS FACILITY IS GOING TO MURDER ME TONIGHT.ATTEMPTS TO CALM AND REDIRECT HER UNSUCCESSFUL.SECURITY CALLED AND ATIVAN 0.5MG AND HALDOL 2MG GIVEN IN LEFT DELTOID.
--- NOTE | 2019-10-20 18:59 | NUR ---
GOOD RESPONSE TO ATIVAN AND HALDOL.
--- NOTE | 2019-10-20 19:07 | NUR ---
PT DAUGHTER CALLED AND WANTED TO CHECK ON HOW SHE WAS DOING. NURSE EXPLAINED THAT SHE HAD AN EPISODE WHERE SHE WAS STANDING IN THE MIDDLE OF THE DAYAREA STARTED SCREAMING "SOMEONE HERE IS GONNA KILL ME TONIGHT." PT REPEATED STATEMENTS OVER AND OVER. WE GAVE HIM ATIVAN TO AID IN CALMING HER DOWN. DAUGHTER ASKED TO SPEAK TO PT. NURSE ALLOWED DAUGHTER TO SPEAK WITH HER.
[2019-10-20 19:16] VITALS: BP 123/55
--- NOTE | 2019-10-20 21:11 | NUR ---
B.) PT IS ALERT AND ORIENTED TO SELF AND PLACE. SHE IS ABLE TO VOICE NEEDS AND WANTS. SHE DENIES ANY HALLUCINATIONS. SHE IS TEARFUL AT TIMES. SHE RELATES THAT SHE DOESNT REMEMBER TAKING DEPAKOTE FOR ANY REASON. I.) PROVIDED PM MEDICATIONS PRESCRIBED. REDIRECT NEEDED. R.) COMPLIANT WITH ALL MEDICATIONS. EASY TO REDIRECT. P.) WILL CONTINUE TO MONITOR.
--- NOTE | 2019-10-21 07:45 | NUR ---
REC'D PT IN HALLWAY WITH PEERS BY NURSES STATION. CALM AND COOPERATIVE WITH ASSESSMENT AT THIS TIME. PRESCRIBED MEDS PROVIDED ORDERED. MED COMPLIANT. PT NOTED TALKING TO UNSEEN OTHERS. REDIRECT AND REORIENT NEEDED. FALL PRECAUTIONS IN PLACE. WILL CPOC.
[2019-10-21 09:47] VITALS: BP 133/57
[2019-10-21 20:14] VITALS: BP 127/70
--- NOTE | 2019-10-21 20:17 | NUR ---
RECEIVEDIN DAYROOM. SITTING CALMLY IN DAYROOM WITH PEERS AT HER SIDE. CALM AND COOPERATIVE WITH CARE AND ASSESSMENT. ENCOURAGE TO EXPRESS NEEDS. REDIRECT AND REORIENT NEEDED. CONTINUES TO SIT CALMLY IN DAYROOM. CONTINUE PLAN OF CARE.
--- NOTE | 2019-10-22 02:00 | NUR ---
OUT OF ROOM. VERY CONFUSED. YELLING "SOMEONE IS GOING TO MURDER ME TONIGHT!" OVER AND OVER. REDIRECTED AND REORIENTED.
[2019-10-22 09:19] VITALS: BP 140/90
--- NOTE | 2019-10-22 12:00 | NUR ---
RECEIVED IN HALLWAY OUTSIDE OF NURSES STATION. CALM AND COOPERATIVE WITH CARE AND ASSESSMENT. PATIENT TOLD STAFF MULTIPLE TIMES THAT SHE IS ENGAGED AND ALSO THAT ELIECER'S SON IS COMING TO VISIT HER TOMORROW. REDIRECT AND REORIENT NEEDED. EATING AT THIS TIME. CONTINUE PLAN OF CARE.
[2019-10-22 20:28] VITALS: BP 124/55
--- NOTE | 2019-10-22 22:39 | NUR ---
RECEIVED IN DAYROOM. SITTING IN A WHEELCHAIR QUIETLY WATCHING TV, WHEN SHE GOT UP AND STARTED YELLING " SOMEONE IS GOING TO EUTHANIZE ME TONIGHT!" UNABLE TO REDIRECT OR REORIENT. SHE BECAME VIOLENT WITH STAFF. HITTING AT [facility]. PRN ATIVAN 0.5 MG IN GIVEN FOR ANXIETY AND PRN HALDON 2 MG IM GIVEN FOR UNSAFE PSYCHOTIC BEHAVIOR. PATIENT IS RESTING IN BED WITH EYES CLOSED AT THIS TIME. CONTINUE PLAN OF CARE.
--- NOTE | 2019-10-23 10:02 | PN ---
PATIENT:CURLY MARQUES MEDICAL RECORD: [id number] LOCATION:[facility] ADMISSION DATE: 09/28/19 PROGRESS NOTE DATE OF SERVICE: 10/22/2019 SUBJECTIVE: The patient's case was discussed with staff. She has no new complaint. OBJECTIVE: The patient denies intent to harm herself or others. She does tolerate her medicines well. Unfortunately, she continues to be delusional. She did actually speak with me today and answered some very neutral-type questions and conversation was not particularly hard hitting, but she did speak with me without telling me that even the most simple of questions is too personal. Unfortunately, she did tell me that she is going to be marrying Stewart Manrique when she leaves here. ASSESSMENT: Dementia. PLAN: I am going to maintain the patient on current medicines. I think she is clearly better. I am also going to check a Depakote level. NTS:[id number] Voice Confirmation ID: [id number] DOCUMENT ID: [id number] ELKE PORTILLO MD at 1002 CC: [id number] DICTATION DATE: 10/22/19 1654 BRANCH LEAD: 10/23/19 0026 ADM IN [facility] [address] [place] [address]
[2019-10-23 10:17] VITALS: BP 136/66
--- NOTE | 2019-10-23 12:00 | NUR ---
RECEIVED IN HALLWAY OUTSIDE OF NURSES STATION. CALM AND COOPERATIVE WITH CARE AND ASSESSMENT. STATES SHE IS ENGAGED TO SOMEONE BUT SAYS IT IS NONE OF THE STAFF'S BUSINESS WHO IT IS BECAUSE IT IS HER PERSONAL LIFE. REDIRECT AND REORIENT NEEDED. EATING AT THIS TIME. CONTINUE PLAN OF CARE.
[2019-10-23 20:53] VITALS: BP 128/54
--- NOTE | 2019-10-23 22:03 | NUR ---
RECEIVED IN DAYROOM. SITTING IN A CHAIR WITH PEERS AT HER SIDE. CALM AND COOPERATIVE WITH CARE AND ASSESSMENT. NO DELUSIONAL STATEMENTS VOICED THIS EVENING. REDIRECT AND REORIENT A NEEDED. TRANSFERE TO BEDROOM AREA AT THIS TIME. CONTINUE PLAN OF CARE.
--- NOTE | 2019-10-24 06:28 | NUR ---
PATIENT OUT IN HALLWAY YELLING "SOMONE IS GOING TO EUTHANIZE ME TODAY!" REDIRECT AND REOREINT.
--- NOTE | 2019-10-24 12:51 | NUR ---
pt sitting watching t.v. at this time. pt is alert and oriented to person, place. pt has some confusion noted at times. previous shift reported behaviors. no behaviors noted at this time. pt was compliant with meds, vitals and assessments. pt can make needs known. will cont plan of care.
--- NOTE | 2019-10-24 13:27 | PN ---
PATIENT:CURLY MARQUES MEDICAL RECORD: [id number] LOCATION:[facility] ADMISSION DATE: 09/28/19 PROGRESS NOTE DATE OF SERVICE: 10/23/2019 SUBJECTIVE: The patient's case was discussed with staff. She has no new complaint. OBJECTIVE: The patient denies intent to harm herself or others. She is tolerating her medicines well. ASSESSMENT: Dementia. PLAN: Brief supportive and educational interventions were made. Long-term prognosis is guarded. The patient's Depakote level was low, I am going to increase the dose. TRANSINT:[id number] Voice Confirmation ID: [id number] DOCUMENT ID: [id number] ELKE PORTILLO MD at 1327 CC: [id number] DICTATION DATE: 10/23/19 1607 MANAGER OF PATIENT: 10/23/19 2326 ADM IN [place] [id number] [place] [id number]
--- NOTE | 2019-10-24 14:01 | NUR ---
Nutrition Follow-up: Diet: Diabetic PO intake: 100% x last 6 meals Last BM: 10/23/19. Wt: 247.2# (10/21/19); Admit Wt: 250# (09/28/19) Meds noted: glipizide. Labs noted: POC Glu 109(WNL) Recommend continue current diet. RD following.
[2019-10-24 14:18] VITALS: BP 145/75
--- NOTE | 2019-10-24 16:44 | NUR ---
PT IN DAY ROOM PACING STATING "SOMEONE TURN OFF MY DEFIBRILLATOR. SOMEONE IS TRYING TO KILL ME. SOMEOEN IS TRYING TO KILL ME TONIGHT." STAFF ATTEMPTED TO REDIRECT PTS BEHAVIOR MULTIPLE TIMES. UNABLE TO REDIRECT BEHAVIOR. PT IS RESTLESS STATING SOMEONE IS GOING TO KILL HER. WE DONT UNDERSTAND THAT SOMEONE IS TRYING TO KILL ME." ATIVAN 0.5 MG IM AND HALDOL [address] PORTILLO ORDER FOR ANXIETY. PT DID NOT TOLERATE VERY WELL. WILL CONT TO MONITOR FOR EFFECTIVENESS.
--- NOTE | 2019-10-24 17:50 | NUR ---
PRN EFFECTIVE AT THIS TIME. WILL CONT TO MONITOR.
[2019-10-24 20:00] VITALS: BP 125/63
--- NOTE | 2019-10-24 22:00 | NUR ---
RECEIVED IN DAYROOM, LYING ON SOFA WITH EYES CLOSED. AROUSED FOR ASSESSMENT. SOME CONFUSION NOTED, BUT NO BEHAVIORS AT THIS TIME. ADMINISTER PRESCRIBED MEDICATIONS. PATIENT PICKS EACH MEDICATION AND REFUSES TO TO TAKE EXTRA DOSE OF DEPAKOTE 500 MG PO. SHE INSISTS THAT 1500 MG A DAY IS TOO MUCH AND SHE IS GOING TO TALK WITH THE DOCTOR ABOUT IT. REDIRECT AND REORIENT NEEDED. CONTINUE PLAN OF CARE.
[2019-10-25 09:40] VITALS: BP 108/54
--- NOTE | 2019-10-25 10:44 | NUR ---
PT SITTING ON COUCH AT THIS TIME. PT IS CONFUSED. ALERT TO SELF ONLY. NURSE WAS ADMINSTERING MEDS THIS A.M. NURSE NOTED THAT PT PUT PILLS INTO HER POCKET. NURSE ASKED PT TO EMPTY HER POCKETS. PT COMPLIED AND 2 PILLS WERE IN PT POCKETS. PT TOOK THE MEDS STATING "I WAS NOT SURE ABOUT THOSE." PT DID REFUSE MEDS ON THE PREVIOUS SHIFT. STAFF ENCOURGAGE HER TO TAKE MEDS. PT IS PARANOID AND ISOLATIVE. ATTEMPT TO REDIRECT PTS BEHAVIOR. AT TIMES ABLE TO REDIRECT. PT IS CONFUSED AND DISORIENTED. PT CAN MAKE NEEDS KNOWN. AMBULATES. WILL CONT PLAN OF CARE.
--- NOTE | 2019-10-25 14:39 | PN ---
PATIENT:CURLY MARQUES MEDICAL RECORD: [id number] LOCATION:[facility] ADMISSION DATE: 09/28/19 PROGRESS NOTE DATE OF SERVICE: 10/24/2019 SUBJECTIVE: The patient's case was discussed with staff. She has no new complaint. OBJECTIVE: The patient continues to be delusional and at times labile. She is angry. ASSESSMENT: Dementia. PLAN: At this time, I am going to change the patient over to a high potency antipsychotic. The Geodon has not been sufficiently effective. TRANSINT:[id number] Voice Confirmation ID: [id number] DOCUMENT ID: [id number] ELKE PORTILLO MD at 1439 CC: [id number] DICTATION DATE: 10/24/19 1624 TABLE GAMES DUAL RATE SUPERVISOR: 10/25/19 0053 ADM IN [facility] [address] [place] [address]
[2019-10-25 20:04] VITALS: BP 118/43
--- NOTE | 2019-10-25 22:07 | NUR ---
PT CAME OUT OF HER ROOM SCREAMING "YOUR GOING TO KILL ME TONITE." SHE STATES SHE IS GOING TO BE HEARD. ADMINISTERED IM ATIVAN 0.5 MG. WILL CONTINUE TO MONITOR.
--- NOTE | 2019-10-25 22:10 | NUR ---
PT IS ALERT AND ORIENTED TO SELF, PLACE AND SITUATION. SHE IS ABLE TO ABULATE WITHOUT ASSIST. SHE IS ATTEMPTING TO REFUSE HER HS MEDICATIONS. SHE STATES SHE DOESNT WANT TO TAKE THE PILLS OR THE SHOT. AFTER REDIRECT SHE TOOK THE HALDOL DECONATE INJ AND THEN HER MEDICATIONS. WE DISCUSSED NOT POCKETING HER PILLS AND FROM NOW ON HER MEDICATIONS WILL BE CLOSELY MONITORED FOR COMPLIANCE. SHE IS DIFFICULT TO REDIRECT. WILL CONTINUE TO MONITOR.
--- NOTE | 2019-10-25 22:40 | NUR ---
PT IS RESTING IN BED WITH EYES CLOSED. NO SIGNS OF DISTRESS NOTED. WILL CONTINUE TO MONITOR.
[2019-10-26 09:22] VITALS: BP 133/45
--- NOTE | 2019-10-26 10:33 | PN ---
PATIENT:CURLY MARQUES MEDICAL RECORD: [id number] LOCATION:[facility] ADMISSION DATE: 09/28/19 PROGRESS NOTE DATE OF SERVICE: 10/25/2019 SUBJECTIVE: The patient's case was discussed with staff. She has no new complaint. OBJECTIVE: The patient was caught cheeking her medications. I suspect she has been doing this for some time. Her Depakote level is actually quite somewhat low given the dose that she is taking. ASSESSMENT: Dementia. PLAN: I am going to give the patient a long-acting antipsychotic injection. She will be monitored for clinical changes associated with its use. TRANSINT:[id number] Voice Confirmation ID: [id number] DOCUMENT ID: [id number] ELKE PORTILLO MD at 1033 CC: [id number] DICTATION DATE: 10/25/19 1453 ANESTHESIOLOGIST: 10/25/19 2214 ADM IN [place] [id number] [place] [address]
--- NOTE | 2019-10-26 11:42 | NUR ---
The patient is paranoid in her thoughts. She says "I am worried about my meds, I am supposed to be on carbatolol and potassium, I think I may ." Tried to explain to her that her Dr. knows what she needs to be on. She said "Yea, but I haven't taken Simvastatin in years, it makes my legs cramp, and I know I need my potassium and carbatolol." Explained to her that we will talk to the Dr. about it. She spoke to me twice about it, once while giving her am meds and then again when she asked me for water. Provide prescribed meds. The patient took her meds, but this nurse watched her take all of her meds. Continue POC.
[2019-10-26 20:10] VITALS: BP 113/56
--- NOTE | 2019-10-26 21:52 | NUR ---
B.) PT IS ALERT AND ORIENTED TO SELF ONLY. SHE RELATES THAT SHE FEELS ANXIOUS AND LIKE YELLING OUT. SHE HAS SHIFTING GAZES AND APPEARS SUSPICIOUS OF PEERS. SHE IS ABLE TO AMBULATE WITHOUT ASSIST. I.) PROVIDED PM MEDICATIONS AND PRN ATIVAN IM 0.5MG. REDIRECT NEEDED. R.) COMPLIANT WITH ALL MEDICATIONS. EASY TO REDIRECT AT THIS TIME. P.) WILL CONTINUE TO MONITOR.
--- NOTE | 2019-10-26 22:15 | NUR ---
PT IS RESTING CALMLY IN BED WITH EYES CLOSED. NO DISTRESS NOTED. WILL CONTINUE TO MONITOR.
[2019-10-27 08:27] VITALS: BP 139/57
--- NOTE | 2019-10-27 09:33 | NUR ---
Sat with the patient this am and watched her take each pill individually. She is awake and she is not near as paranoid as she has been. Her affect is more reactive. She ambulates independently. She is watching TV and has not made any comment about being , but she is not admitting to her previous behavior that got her here. She said "I was on someone's property too long, I was waiting for a friend, and they called the police on me." Provide prescribed meds. The patient is compliant with meds. Continue POC.
--- NOTE | 2019-10-27 10:14 | NUR ---
dr. baker here to eval pts feet per consult. pt tolerated well.
--- NOTE | 2019-10-27 11:28 | PN ---
PATIENT:CURLY MARQUES MEDICAL RECORD: [id number] LOCATION:[facility] ADMISSION DATE: 09/28/19 PROGRESS NOTE DATE OF SERVICE: 10/26/2019 SUBJECTIVE: The patient's case was discussed with staff. She has no new complaint. OBJECTIVE: The patient received a Haldol Decanoate shot, her scheduled Haldol has been substantially increased. I strongly suspect that she has not been consistently taking her medications. By that, I mean I believe she has been cheeking them. She is now on 1500 mg a day of Depakote. I would certainly expect her blood level to be somewhere in the range of 90-110. I am going to check her blood level. TRANSINT:[id number] Voice Confirmation ID: [id number] DOCUMENT ID: [id number] ELKE PORTILLO MD at 1128 CC: [id number] DICTATION DATE: 10/26/19 1538 STOCKROOM KEEPER: 10/27/19 0059 ADM IN [address] [place] [address]
--- NOTE | 2019-10-27 19:06 | PN ---
PATIENT:CURLY MARQUES MEDICAL RECORD: [id number] LOCATION:[facility] ADMISSION DATE: 09/28/19 PROGRESS NOTE DATE OF SERVICE: 10/27/2019 SUBJECTIVE: The patient's case was discussed with staff. She has no new complaint. OBJECTIVE: The patient is oriented and cooperative today. She is somewhat dismissive as she is wanting to watch a television show and I have interrupted her. She was agitated last night and did receive p.r.n. medication. ASSESSMENT: Dementia. PLAN: The patient will have a Depakote level checked. This will be a gauge of medication compliance. TRANSINT:[id number] Voice Confirmation ID: [id number] DOCUMENT ID: [id number] ELKE PORTILLO MD at 1906 CC: [id number] DICTATION DATE: 10/27/19 1234 SUPPLIER QUALITY SPECIALIST: 10/27/19 1251 ADM IN [place] [address] [place] [address]
[2019-10-27 20:00] VITALS: BP 133/64
--- NOTE | 2019-10-27 21:02 | NUR ---
B.) PT IS ALERT AND ORIENTED TO SELF ONLY. SHE HAS POOR INSIGHT INTO HER SITUATION. SHE IS CALM AND COOPERATIVE WITH STAFF. SHE IS ABLE TO AMBULATE ON HER OWN BUT HAS A VERY UNSTEADY GAIT. I.) PROVIDED PM MEDICATIONS PRESCRIBED. REDIRECT NEEDED. R.) COMPLIANT WITH ALL MEDICATIONS. EASY TO REDIRECT. P.) WILL CONTINUE TO MONITOR.
[2019-10-28 10:50] VITALS: BP 147/67
--- NOTE | 2019-10-28 11:50 | NUR ---
The patient is awake and alert this am, she has not made any delusional statements about or someone trying to kill her. She says she slept well. She is ambulating independently. Provide prescribed medications, the patient is compliant with her medications. She requests that staff tell her what her medications are. Her affect is blunted at times, but she is more reactive. Continue POC.
--- NOTE | 2019-10-28 20:07 | NUR ---
RECEIVED IN DAYROOM. SITTING IN A CHAIR WITH PEERS AT HER SIDE. CALM AND COOPERATIVE WITH CARE AND ASSESSMENT. NO SIGNS OF AGGRESSION. REDIRECT AND REORIENT NEEDED. CONTINUES TO STI CALMLY IN DAYROOM. CONTINUE PLAN OF CARE.
[2019-10-28 20:37] VITALS: BP 126/47
[2019-10-29 09:21] VITALS: BP 133/73
--- NOTE | 2019-10-29 11:21 | NUR ---
PT IS SITTING ON COUCH ATTENDING GROUP AT THIS TIME. ASSESSMENT COMPLETED. PRESCRIBED MEDS PROVIDED ORDERED. MED COMPLIANT. AWAKE AND ALERT TO PERSON, PLACE, AND TIME. NO BEHAVIORS NOTED AT THIS TIME. REDIRECT AND REORIENT NEEDED. FALL PRECAUTIONS IN PLACE. WILL CPOC.
[2019-10-29 19:13] LABS: BASOPHILS 0.3 % (0-2); EOSINOPHILS 1.5 % (0-7); HEMOGLOBIN 12.7 g/dL (12-16); LYMPHOCYTES 27.8 % (15-50); MCH 29.7 pg (26.0-34.0); MCV 95.8 fL (80.0-100.0); MEAN PLATELET VOLUME 9.6 fL (7.4-10.4); MONOCYTES 6.7 % (2-11); NEUTROPHILS 62.7 % (40-80); PLATELET COUNT 276 10x3/uL (130-400); RBC 4.28 10x6/uL (4.00-5.40); RDW 13.6 % (11.5-14.5)
[2019-10-29 19:31] LABS: CALCIUM 8.5 mg/dL (8.5-10.1); CARBON DIOXIDE 32.7 mmol/L (21.0-32.0); POTASSIUM - SERUM 3.7 mmol/L (3.5-5.1); VALPROIC ACID (DEPAKOTE) 51.3 ug/mL (50.0-100.0)
[2019-10-29 20:05] VITALS: BP 117/40
--- NOTE | 2019-10-30 02:30 | NUR ---
B) Patient is alert and oriented to person and place, calm and cooperative this shift I) Administered scheduled medications as ordered, monitored for safety R) Mediation compliant, social with staff, P) Continue plan of care.
--- NOTE | 2019-10-30 08:21 | PN ---
PATIENT:CURLY MARQUES MEDICAL RECORD: [id number] LOCATION:[facility] ADMISSION DATE: 09/28/19 PROGRESS NOTE DATE OF SERVICE: 10/29/2019 SUBJECTIVE: The patient's case was discussed with staff. She has no new complaint. OBJECTIVE: The patient is calm and cooperative. She is not making any delusional statements. I suspect she still has these delusional beliefs about being , but I am not going to bring it up because it tends to aggravate her or upset her. I am viewing it as a big improvement that she is not constantly ruminating about this and I think given her overall circumstances, she is manageable in a long-term care setting and has improved. I have reviewed her medicines and I am going to maintain her on current medicines. I will check a Depakote level. TRANSINT:[id number] Voice Confirmation ID: [id number] DOCUMENT ID: [id number] ELKE PORTILLO MD at 0821 CC: [id number] DICTATION DATE: 10/29/19 1636 AIR HAMMER OPERATOR: 10/29/19 2328 ADM IN [facility] [address] [place] [address]
[2019-10-30 09:53] VITALS: BP 152/80
--- NOTE | 2019-10-30 15:48 | NUR ---
PT SITTING IN CHAIR WATCHING T.V. AT THIS TIME. PT IS CALM AND COOPERATIVE. PT IS COMPLIANT WITH MEDS, VITALS AND ASSESSMENT. PT AMBULATES PER SELF. NO BEHAVIORS NOTED AT THIS TIME. PT ALERT AND ORIENTED TO PERSON, PLACE AND TIME. PT IS DISORIENTED TO SITUATION. WILL CONT PLAN OF CARE.
[2019-10-30 20:28] VITALS: BP 141/79
--- NOTE | 2019-10-30 22:47 | NUR ---
B) Patient is alert and oriented to person, place and time. Calm and cooperative this shift I) Administered scheduled medications as ordered, assisted with needs, PRN Tylenol 650 mg PO given at 21:30 R) Mediation compliant, sleeping now quietly in her bed P) Continue plan of care.
[2019-10-31 09:16] VITALS: BP 147/77
--- NOTE | 2019-10-31 11:08 | NUR ---
REC'D PT IN DAYROOM WITH PEERS. PT IS ATTENDING GROUP AT THIS TIME. CALM AND COOPERATIVE WITH ASSESSMENT. PRESCRIBED MEDS PROVIDED ORDERED. MED COMPLIANT. NO BEHAVIORS NOTED AT THIS TIME. REDIRECT AND REORIENT NEEDED. FALL PRECAUTIONS IN PLACE. WILL CPOC.
--- NOTE | 2019-10-31 15:58 | PN ---
PATIENT:CURLY MARQUES MEDICAL RECORD: [id number] LOCATION:[facility] ADMISSION DATE: 09/28/19 PROGRESS NOTE DATE OF SERVICE: 10/30/2019 SUBJECTIVE: The patient's case was discussed with staff. She has no new complaint. OBJECTIVE: The patient is in good behavioral control with poor insight about her situation. She tolerates her medicines well. ASSESSMENT: Dementia. PLAN: Current medicines and therapies have been reviewed and will be maintained. Long-term prognosis is guarded. She can be transitioned out of the hospital as soon as arrangements have been made for her placement. [employer] [facility] [facility] has not given her approval yet. TRANSINT:[id number] Voice Confirmation ID: [id number] DOCUMENT ID: [id number] ELKE PORTILLO MD at 1558 CC: [id number] DICTATION DATE: 10/30/19 1537 SURGICAL FORCEPS FABRICATOR: 10/31/19 0010 ADM IN [facility] [address] [place] [address]
--- NOTE | 2019-10-31 16:16 | NUR ---
Nutrition Follow-up: Diet: Diabetic PO intake: 100% x all Last BM: 10/27/19. Wt: 250.6# (10/28/19); Admit Wt: 250# (09/28/19) Meds noted: glipizide, MagOx. Labs noted: POC Glu 91(WNL) Recommend continue current diet. RD following.
[2019-10-31 20:01] VITALS: BP 107/44
--- NOTE | 2019-10-31 23:54 | NUR ---
B) Patient is alert and oriented to person, place and time, calm and cooperative, follows instructions I) Administered scheduled medications as ordered, assisted with needs, R) mediation compliant, pleasant and quiet, auditory hallucinations after going to her room at night p) Continue plan of care.
[2019-11-01 09:25] VITALS: BP 135/49
--- NOTE | 2019-11-01 10:28 | NUR ---
The patient is pleasant and cooperative, she is calm and she has not made any delusional statements, have not seen her attending to her voices. Provide prescribed meds. The patient is compliant with meds. Continue POC.
--- NOTE | 2019-11-01 12:01 | PN ---
PATIENT:CURLY MARQUES MEDICAL RECORD: [id number] LOCATION:[facility] ADMISSION DATE: 09/28/19 PROGRESS NOTE DATE OF SERVICE: 10/31/2019 SUBJECTIVE: The patient's case was discussed with staff. She has no new complaint. OBJECTIVE: The patient is in good behavioral control. She is eating and sleeping well. She has no thoughts of self-harm. She does not mention anything delusional and I have been refraining from asking her if she is because it tends to make her angry. Given the fact that she is so much more interactive and not talking about things that are delusional, I am going to not bring this up unless it is necessary. I think she is very appropriate for long term placement and does not have any evidence of dangerousness to herself or others. TRANSINT:[id number] Voice Confirmation ID: [id number] DOCUMENT ID: [id number] ELKE PORTILLO MD at 1201 CC: [id number] DICTATION DATE: 10/31/19 1610 DINING ROOM SERVER: 11/01/19 0320 ADM IN [place] [address] [place] [id number]
[2019-11-01 21:22] VITALS: BP 132/64
--- NOTE | 2019-11-01 22:19 | NUR ---
B) Patient is alert and oriented to person, place and time, calm and cooperative I) Administered scheduled medications as ordered, PRN Tylenol 650 mg PO given at 20:12, monitored for safety R) Mediation compliant, resting quietly in bed now, P) Continue plan of care.
--- NOTE | 2019-11-02 07:59 | NUR ---
The patient is awake and she is alert, she has not made any bizarre comments today about grandiose delusions. She is calm and has not been paranoid in thought. She ambulates independently. Provide prescribed meds. The patient is knowledgable in her medications and she knows what they are for and what they look like. Staff to watch her take her medications. Continue to monitor her behavior. Continue POC.
[2019-11-02 09:07] VITALS: BP 141/66
--- NOTE | 2019-11-02 13:20 | PN ---
PATIENT:CURLY MARQUES MEDICAL RECORD: [id number] LOCATION:[facility] ADMISSION DATE: 09/28/19 PROGRESS NOTE DATE OF SERVICE: 11/01/2019 SUBJECTIVE: The patient's case was discussed with staff. She has no new complaint. OBJECTIVE: The patient is partially oriented. She is denying delusions and thoughts of harming herself or others. ASSESSMENT: Dementia. PLAN: The patient can be transitioned out of the hospital as soon as she is medically stable. Her long-term prognosis is guarded. TRANSINT:[id number] Voice Confirmation ID: [id number] DOCUMENT ID: [id number] ELKE PORTILLO MD at 1320 CC: [id number] DICTATION DATE: 11/01/19 1617 ENGINEERING GROUP MANAGER: 11/01/19 2337 ADM IN [facility] [address] [place] [address]
--- NOTE | 2019-11-02 20:30 | NUR ---
B) PATIENT IS ALERT AND ORIENTED TO PERSON, CALM AND COOPERATIVE. SHE HAS HAD NO STRANGE BEHAVIORS TONIGHT. I) ADMINISTERED SCHEDULED MEDICATIONS. REDIRECT NEEDED. SELF AMBULATORY. R) MEDICATION COMPLIANT. TYLENOL 1000 MG PO GIVEN FOR GENERALIZED ACHES. P) CONTINUE PLAN OF CARE.
[2019-11-02 21:05] VITALS: BP 116/63
--- NOTE | 2019-11-03 12:24 | NUR ---
CALM AND COOPERATIVE.ORIENTED TO SELF WITH CONFUSION.COMPLIANT WITH MEDS AND STAFF TODAY.WILL QUESTION MEDS.NO BEHAVIORS OBSERVED .WILL CONTINUE WITH CURRENT PLAN OF CARE,MONITOR FOR CHANGES AND SAFETY.
[2019-11-03 14:20] VITALS: BP 114/53
--- NOTE | 2019-11-03 23:26 | NUR ---
RECEIVED PATIENT IN DAYROOM, SHE STAYS TO HERSELF, COMPLIANT WITH MEDS, CAN MAKE ALL NEEDS KNOWN. BIZARRE. WILL FOLLOW POC
[2019-11-04 08:53] VITALS: BP 138/62
--- NOTE | 2019-11-04 15:45 | NUR ---
PT IS SITTING IN DAYROOM WITH PEERS. CALM AND COOPERATIVE WITH ASSESSMENT. PRESCRIBED MEDS PROVIDED ORDERED. MED COMPLIANT. NO BEHAVIORS NOTED. WILL CPOC.
[2019-11-04 19:36] VITALS: BP 137/61
--- NOTE | 2019-11-04 22:26 | NUR ---
B) patient is alert and oriented to person, place and time, calm and cooperative, I) Administered scheduled medications as ordered, R) Medication compliant, no behaviors noted, P) Continue plan of care.
[2019-11-05 09:08] VITALS: BP 139/57
--- NOTE | 2019-11-05 17:18 | NUR ---
PT IS SITTING AT DINING ROOM TABLE WITH PEERS. CALM AND COOPERATIVE WITH ASSESSMENT. PRESCRIBED MEDS PROVIDED ORDERED. MED COMPLIANT. REDIRECT AND REORIENT NEEDED. WILL CPOC.
--- NOTE | 2019-11-05 19:35 | NUR ---
RECEIVED IN DAYROOM. SITTING ON THE SOFA KEEPING TO HERSELF. YELL OUT AT TIMES THAT SHE IS NOT GOING TO TAKE MEDS. CALM AND COOPERATIVE WITH CARE AND ASSESSMENT. CONTINUES TO SIT ON SOFA. CONTINUE PLAN OF CARE.
--- NOTE | 2019-11-05 19:42 | NUR ---
RECEIVED IN DAYROOM. SITTING IN A CHAIR WITH PEERS AT HER SIDE. CALM AND COOPERATIVE WITH CARE AND ASSESSMENT. ENCOURAGE TO EXPRESS NEEDS. REDIRECT AND REOREINT NEEDED. CONTINUES TO SIT CALMLY IN DAYROOM. CONTINUE PLAN OF CARE.
[2019-11-05 20:10] VITALS: BP 145/64
--- NOTE | 2019-11-06 08:22 | PN ---
PATIENT:CURLY MARQUES MEDICAL RECORD: [id number] LOCATION:[facility] ADMISSION DATE: 09/28/19 PROGRESS NOTE DATE OF SERVICE: 11/05/2019 SUBJECTIVE: The patient's case was discussed with staff. She has no new complaint. OBJECTIVE: The patient is in good behavioral control. She is impaired cognitively. She has no thoughts of harming herself or others. ASSESSMENT: Dementia. PLAN: The patient is in need of 40-kahb-m-day supervision. The problem is placement and the placement is complicated because of the COVID pandemic. TRANSINT:[id number] Voice Confirmation ID: [id number] DOCUMENT ID: [id number] ELKE PORTILLO MD at 0822 CC: [id number] DICTATION DATE: 11/05/19 173 STAIN REMOVER: 11/06/19 0136 ADM IN [facility] [address] [place] [id number]
[2019-11-06 10:07] VITALS: BP 149/75
--- NOTE | 2019-11-06 16:23 | NUR ---
PT SITTING IN CHAIR WATCHING T.V. PT IS CALM AND COOPERTIVE WITH STAFF AND PEERS. PT IS COMPLIANT WITH MEDS, VITALS AND ASSESMENT. PT CAN MAKE NEEDS KNOWN. NO BEHAVIORS NOTED. REDIRECT AND REORIENT NEEDED. AMBULATES. WILL CONT PLAN OF CARE.
--- NOTE | 2019-11-06 19:48 | NUR ---
RECEIVED IN DAYROOM. SITTING IN A CHAIR WITH PEERS AT HER SIDE. SOCIAL AT TIMES. CALM AND COOPERATIVE WITH CARE AND ASSESSMENT. NO DELUSIONAL STATEMENTS VOICED. ENCOURAGE TO EXPRESS NEEDS. SITTING CALMLY IN DAYROOM AT THIS TIME. CONTINUE PLAN OF CARE.
[2019-11-06 19:52] VITALS: BP 122/51
[2019-11-07 08:36] VITALS: BP 148/79
--- NOTE | 2019-11-07 09:07 | PN ---
PATIENT:CURLY MARQUES MEDICAL RECORD: [id number] LOCATION:[facility] ADMISSION DATE: 09/28/19 PROGRESS NOTE DATE OF SERVICE: 11/06/2019 SUBJECTIVE: The patient's case was discussed with staff. She has no new complaint. OBJECTIVE: The patient is in good behavioral control. She has poor insight about her situation. She has not been disruptive or aggressive. ASSESSMENT: Dementia. PLAN: The patient can be transitioned out of the hospital as soon as placement is arranged. There are complicating factors associated with this and that has been documented numerous times. TRANSINT:[id number] Voice Confirmation ID: [id number] DOCUMENT ID: [id number] ELKE PORTILLO MD at 0907 CC: [id number] DICTATION DATE: 11/06/19 1623 METHODS AND PROCEDURES ANALYST: 11/07/[address] [facility] [address] [place] [address]
--- NOTE | 2019-11-07 11:43 | NUR ---
pt sitting in chair in day room. pt is alert to place. confusion noted. redirect and reorient as needed. pt is calm and cooperative. no behaviors noted. pt can make needs known. ambulates. compliant with meds, vitals and assessments. will cont plan of care.
--- NOTE | 2019-11-07 14:54 | NUR ---
Nutrition Follow-up: Diet: Diabetic PO intake: 100% x all meals Last BM: 11/03/19. Wt: 254# (11/04/19); Admit Wt: 250# (09/28/19) Meds noted: glipizide. Labs noted: POC Glu 99(WNL) Recommend continue current diet. MD may consider adding bowel regimen. RD following.
[2019-11-07 20:27] VITALS: BP 115/48
--- NOTE | 2019-11-07 20:44 | NUR ---
RECEIVED PATIENT IN DAYROOM, CALM, NOT CONFUSED AT THIS TIME. SHE STAYS TO HERSELF AND IS ABLE TO MAKE ALL OF HER NEEDS KNOWN. WILL FOLLOW POC. COMPLIANT WITH MEDS. NO ADVERSE REACTION NOTED.
[2019-11-08 11:19] VITALS: BP 105/41
--- NOTE | 2019-11-08 13:19 | PN ---
PATIENT:CURLY MARQUES MEDICAL RECORD: [id number] LOCATION:[facility] ADMISSION DATE: 09/28/19 PROGRESS NOTE DATE OF SERVICE: 11/07/2019 SUBJECTIVE: The patient's case was discussed with staff. She has no new complaint. OBJECTIVE: The patient is in good behavioral control. She has poor insight about her situation, but she has not been disruptive. ASSESSMENT: Dementia. PLAN: The patient may be transitioned out of the hospital as soon as placement is arranged. TRANSINT:[id number] Voice Confirmation ID: [id number] DOCUMENT ID: [id number] ELKE PORTILLO MD at 1319 CC: [id number] DICTATION DATE: 11/07/19 1644 LEGEND MAKER: 11/07/19 2344 ADM IN [place] [address] [place] [address]
--- NOTE | 2019-11-08 16:44 | NUR ---
ORIENTED TO SELF AND PLACE.CONFUSION PRESENT.IS COMPLIANT WITH STAFF AND MEDS.CAN BE NEEDY AT TIMES.WILL CONTINUE WITH CURRENT PLAN OF CARE,MONITOR FOR CHANGES AND SAFETY.NO BEHAVIORS OBSERVED.
[2019-11-08 20:09] VITALS: BP 127/45
--- NOTE | 2019-11-09 06:55 | NUR ---
PATIENT PLEASANT, CALM, COMPLIANT WITH MEDS. NO COMPLAINTS. STAYS TO HERSELF
--- NOTE | 2019-11-09 11:04 | NUR ---
The patient is awake and alert, she is pleasant and calm, she denies hallucinations and she is not showing any signs of attending. She is ambulating independently. Provide presribed meds. The patient is compliant with meds. The patient is oriented x3, she does not question her meds. She follows direction well. Continue POC.
--- NOTE | 2019-11-09 12:57 | PN ---
PATIENT:CURLY MARQUES MEDICAL RECORD: [id number] LOCATION:[facility] ADMISSION DATE: 09/28/19 PROGRESS NOTE DATE OF SERVICE: 11/08/2019 SUBJECTIVE: The patient's case was discussed with staff. She has no new complaint. OBJECTIVE: The patient's condition is unchanged. She is appropriate for discharge. Once arrangements have been made for discharge, she is safe to leave the hospital. TRANSINT:[id number] Voice Confirmation ID: [id number] DOCUMENT ID: [id number] ELKE PORTILLO MD at 1257 CC: [id number] DICTATION DATE: 11/08/19 1709 INJECTION MOLDING MACHINE OPERATOR: 11/09/19 0220 ADM IN [place] [id number] [place] [id number]
[2019-11-09 16:17] VITALS: BP 133/83
[2019-11-09 19:57] VITALS: BP 122/55
--- NOTE | 2019-11-09 21:42 | NUR ---
B.) PT IS ALERT AND ORIENTED TO SELF, PLACE AND SITUATION. SHE IS ABLE TO AMBULATE WITHOUT ASSIST. SHE IS CALM AND COOPERATIVE WITH STAFF. SHE RELATES THAT SHE IS TIRED TODAY. I.) PROVIDED PM MEDICATIONS PRESCRIBED. REDIRECT NEEDED. R.) COMPLIANT WITH ALL MEDICATIONS. EASY TO REDIRECT. P.) WILL CONTINUE TO MONITOR.
[2019-11-10 10:10] VITALS: BP 122/53
--- NOTE | 2019-11-10 13:32 | NUR ---
The patient is awake and alert, she asks about throat lozenges as she has them ordered every 2 hours. She ambulates independently. She has not made any mention of delusions. Provide prescribed meds. The patient is compliant with meds. She does not ask about her medications now, she is not showing any paranoia. Continue POC.
[2019-11-10 20:00] VITALS: BP 131/57
--- NOTE | 2019-11-10 22:18 | NUR ---
B.) PT IS ALERT AND ORIENTED TO SELF AND SITATION. SHE IS DEMANDING AT TIMES. SHE IS ABLE TO AMBUALTE ON HER OWN WITHOUT ASSIST. SHE IS ABLE TO VOICE NEEDS. I.) PROVIDED PM MEDICATIONS PRESCRIBED. REDIRECT NEEDED. R.) COMPLIANT WITH ALL MEDICATIONS. EASY TO REDIRECT. P.) WILL CONTINUE TO MONITOR.
[2019-11-11 09:09] VITALS: BP 162/75
--- NOTE | 2019-11-11 11:36 | NUR ---
RECEIVED IN HALLWAY OUTSIDE OF NURSES STATION. CALM AND COOPERATIVE WITH CARE AND ASSESSMENT. NO BEHAVIORS. REDIRECT AND REORIENT NEEDED. EATING AT THIS TIME. CONTINUE PLAN OF CARE.
--- NOTE | 2019-11-11 19:56 | NUR ---
RECEIVED IN DAYROOM. SITTING IN A CHAIR WITH PEERS AT HER SIDE. CALM AND COOPERATIVE WITH CARE AND ASSESSMENT. NO DELUSIONAL STATEMENTS VOICED. REDIRECT AND REOREINT NEEDED. CONTINUES TO SIT CALMLY IN DAYROOM. CONTINUE PLAN OF CARE.
[2019-11-11 20:00] VITALS: BP 137/55
[2019-11-12 08:58] VITALS: BP 145/65
--- NOTE | 2019-11-12 09:13 | NUR ---
SW SPOKE TO PT'S DTR, EDITH, TO UPDATE ON DISCHARGE PLANNING. PT HAS BEEN DENIED BY FIRST CHOICE [facility] AND [facility]. SW CONTINUES TO WAIT ON RESPONSES FROM OTHER TWO NURSING [facility] AND [facility] AND [facility]. SW DID DISCUSS DUE TO COVID AND PT'S BEHAVIORAL HISTORY NURSING HOMES CLOSER TO THE AREA REQUESTED MIGHT NOT BE POSSIBLE. SW WILL WIDEN REFERRAL LOCATION IF MORE DECLINES HAPPEN IN [facility]. EDITH VOICED UNDERSTANDING OF DISCUSSION.
--- NOTE | 2019-11-12 12:00 | NUR ---
RECEIVED IN HALLWAY OUTSIDE OF NURSES STATION. CALM AND COOPERATIVE WITH CARE AND ASSESSMENT. NEEDY AND DEMANDING AT TIMES. REDIRECT AND REORIENT NEEDED. EATING AT THIS TIME. CONTINUE PLAN OF CARE.
--- NOTE | 2019-11-12 19:37 | NUR ---
RECEIVED IN DAYROOM. SITTING IN A CHAIR WITH PEERS AT HER SIDE. CALM AND COOPERATIVE WITH CARE AND ASSESSMENT. NO DELUSIONAL STATEMENTS VOICED. REDIRECT AND REORIENT NEEDED. CONTINUES TO SIT CALMLY IN DAYROOM. CONTINUE PLAN OF CARE.
[2019-11-12 20:06] VITALS: BP 110/65
[2019-11-12 20:12] VITALS: BP 110/65
[2019-11-13 09:34] VITALS: BP 159/75
--- NOTE | 2019-11-13 09:50 | PN ---
PATIENT:CURLY MARQUES MEDICAL RECORD: [id number] LOCATION:[facility] ADMISSION DATE: 09/28/19 PROGRESS NOTE DATE OF SERVICE: 11/12/2019 SUBJECTIVE: The patient's case was discussed with staff. She has no new complaint. OBJECTIVE: The patient has no clinical change from previous notes. ASSESSMENT: Dementia. PLAN: The patient can be discharged at any time. Please see Alphonse's notes for the most current list of nursing homes that have declined her. TRANSINT:[id number] Voice Confirmation ID: [id number] DOCUMENT ID: [id number] ELKE PORTILLO MD at 0950 CC: [id number] DICTATION DATE: 11/12/19 1536 MICROSYSTEMS ENGINEER: 11/12/19 2314 ADM IN [facility] [address] [place] [address]
--- NOTE | 2019-11-13 13:41 | NUR ---
RECEIVED IN HALLWAY OUTSIDE OF NURSES STATION. CALM AND COOPERATIVE WITH CARE AND ASSESSMENT. NO DELUSIONAL STATEMENTS MADE. REDIRECT AND REORIENT NEEDED. IN GROUP AT THIS TIME. CONTINUE PLAN OF CARE.
[2019-11-13 20:43] VITALS: BP 145/60
--- NOTE | 2019-11-13 20:59 | NUR ---
RECEIVED IN DINING AREA. CALM AND COOPERATIVE WITH CARE AND ASSESSMENT. NO DELUSIONAL STATEMENTS VOICED THIS EVENING. REDIRECT AND REORIENT NEEDED. CONTINUES TO SIT CALMLY IN DINING AREA. CONTINUE PLAN OF CARE.
[2019-11-14 09:10] VITALS: BP 129/67
--- NOTE | 2019-11-14 10:04 | NUR ---
NAILA SPOKE TO PT'S DTR, EDITH, TO DISCUSS DISCHARGE PLANNING NEEDS. PT HAS BEEN DENIED BY [facility] AND [facility] IN [place]. PT HAS STABILIZED MORE AND IS LESS APPROPRIATE FOR INTERMEDIATE CARE. PT WOULD BENEFIT FROM [facility] OR LIVING CLOSE TO HER DAUGHTER TO HAVE ASSISTANCE THERE. EDITH STATED SHE WAS GOING TO LOOK INTO [facility] TO SEE IF THEY WILL ACCEPT MEDICAID. EDITH STATED SHE WOULD CONTACT NAILA BACK WITH NEW DISCHARGE PLAN.
--- NOTE | 2019-11-14 12:00 | NUR ---
RECEIVED IN HALLWAY OUTSIDE OF NURSES STATION. CALM AND COOPERATIVE WITH CARE AND ASSESSMENT. DEMANDING AND RUDE AT TIMES. ARGUMENTATIVE. REDIRECT AND REORIENT NEEDED. EATING AT THIS TIME. CONTINUE PLAN OF CARE.
--- NOTE | 2019-11-14 13:39 | NUR ---
NUTRITION FOLLOW UP: COMMENTS: Patient continues to eat well with most meals eaten at 100%. No new lab values recorded since 10/28. Patient has had a weight gain of 3 lbs since last week. DIET: Diabetic diet PO INTAKE: 98% avg for last 9 meals WEIGHT: 11/03- 254 lbs; 11/10- 257 lbs BM: x 1 on 11/10 SIG LABS: None since 10/28 SIG MEDS: Nystatin, Spironolactone, Zocor, Protonix, MagOx RECOMENDATIONS: -Continue current diet as tolerated -Will offer nutritional supplements if po intake becomes < 50% avg for meals -Recommend obtaining new blood labs RD to continue to follow and monitor patient DHS
--- NOTE | 2019-11-14 14:35 | PN ---
PATIENT:CURLY MARQUES MEDICAL RECORD: [id number] LOCATION:[facility] ADMISSION DATE: 09/28/19 PROGRESS NOTE DATE OF SERVICE: 11/13/2019 SUBJECTIVE: The patient's case was discussed with staff. She has no new complaint. OBJECTIVE: The patient's clinical condition is unchanged. ASSESSMENT: Dementia. PLAN: The patient is still awaiting placement. TRANSINT:[id number] Voice Confirmation ID: [id number] DOCUMENT ID: [id number] ELKE PORTILLO MD at 1435 CC: [id number] DICTATION DATE: 11/13/19 1528 SUPERVISOR CHEMICAL: 11/13/19 2346 ADM IN [place] [id number] [place] [id number]
[2019-11-14 20:37] VITALS: BP 104/59
--- NOTE | 2019-11-15 00:25 | NUR ---
B) Patient is alert and oriented to person, place and time, calm and cooperative I) Administered scheduled medications as ordered, assisted wth needs, redirected as needed, R) Mediation compliant, needy at times, social with staff, P) Continue plan of care.
--- NOTE | 2019-11-15 08:16 | NUR ---
The patient is awake and alert, she can be demanding at times. She has not made any delusional statements today. She ambulates, toilets, and feeds her self. She has poor insight into her situation. Provide prescribed meds. The patient is compliant with meds. Continue POC.
[2019-11-15 09:22] VITALS: BP 132/48
--- NOTE | 2019-11-15 12:16 | PN ---
PATIENT:CURLY MARQUES MEDICAL RECORD: [id number] LOCATION:[facility] ADMISSION DATE: 09/28/19 PROGRESS NOTE DATE OF SERVICE: 11/14/2019 SUBJECTIVE: The patient's case was discussed with staff. She has no new complaint. OBJECTIVE: There is no change in the clinical condition. ASSESSMENT: Dementia. PLAN: The patient may be discharged at any time. Arrangements are still being made with difficulty. From my standpoint, she is appropriate for discharge. I just do not have a place to send her. TRANSINT:[id number] Voice Confirmation ID: [id number] DOCUMENT ID: [id number] ELKE PORTILLO MD at 1216 CC: [id number] DICTATION DATE: 11/14/19 1502 ELECTRICAL LOGGING ENGINEER: 11/15/19 0012 ADM IN [facility] [address] [place] [address]
--- NOTE | 2019-11-15 17:05 | PN ---
PATIENT:CURLY MARQUES MEDICAL RECORD: [id number] LOCATION:[facility] ADMISSION DATE: 09/28/19 PROGRESS NOTE DATE OF SERVICE: 11/15/2019 SUBJECTIVE: The patient's case was discussed with staff. She has no new complaint. OBJECTIVE: The patient is in good behavioral control with poor insight about her condition. She tolerates her medicines well. ASSESSMENT: Dementia. PLAN: The patient will be discharged as soon as placement can be arranged. TRANSINT:[id number] Voice Confirmation ID: [id number] DOCUMENT ID: [id number] ELKE PORTILLO MD at 1705 CC: [id number] DICTATION DATE: 11/15/19 1237 SOUP PERSON: 11/15/19 1611 ADM IN [place] [id number] [place] [address]
[2019-11-15 20:32] VITALS: BP 139/65
--- NOTE | 2019-11-15 22:37 | NUR ---
RECEIVED PATIENT IN DAYROOM, SHE DOES SIT AMONGST THE OTHER RESIDENTS BUT SHE DOES NOT SOCIALIZE MUCH, SHE LIKES TO STAY TO HERSELF AND WATCH T.V. SHE IS COMPLIANT WITH MEDS. SHE IS CALM, AND MAKES ALL OF HER NEEDS KNOWN. WILL FOLLOW POC
[2019-11-16 08:52] VITALS: BP 138/76
--- NOTE | 2019-11-16 10:31 | NUR ---
The patient is calm and pleasant, she ambulates, toilets, and feeds herself. She has not shown any delusions, hallucinations, or aggression today. Provide prescribed meds. The patient is compliant with meds. She has poor insight into her situation. Continue POC.
--- NOTE | 2019-11-16 16:55 | NUR ---
The patient is crying, another came and told me the patient is crying. Sat by the patient and she said she was crying because she was not getting to leave today. She said "I want to go home and have my independence." Explained to her that she had some psychosis when she first came. She said "No, I was faking it." She said "I was just at the wrong place at the wrong time." Tried to explain to her that she is better now with medication. She said "No, I got better on my own, well, I am not sure if it is the medication or if it's me." The patient remains delusional as she has said she has had several people in her family that are popular amd that they have in plane crashes. 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 She said someone stole the rights or something of that nature. Did not follow the conversation. She says "My shipping coordinator said I could drive, but my kids do not want me to.
[2019-11-16 20:00] VITALS: BP 115/51
--- NOTE | 2019-11-16 20:06 | NUR ---
RECEIVED PATIENT IN DAYROOM, SITTING IN GERICHAIR WATCHING T.V. SHE IS QUIET, NOTHING UNUSUAL FOR THIS PATIENT, SHE IS COMPLIANT WITH MEDS, NO ADVERSE REACTION NOTED OR SIDE EFFECTS. WILL FOLLOW POC
[2019-11-17 09:12] VITALS: BP 139/70
--- NOTE | 2019-11-17 13:01 | NUR ---
PLEASANT AND COOPERATIVE .NO BEHAVIORS OBSERVED.PROVIDES SELF CARE.COMPLIANT WITH MEDS AND STAFF.WILL CONTINUE WITH CURRENT PLAN OF CARE,MONITOR FOR CHANGES AND SAFETY.
[2019-11-17 19:31] VITALS: BP 143/69
--- NOTE | 2019-11-17 19:44 | NUR ---
RECEIVED PATIENT IN DAYROOM, CALM, SHE STAYS TO HERSELF, SHE IS COMPLIANT WITH MEDS, SHE CAN MAKE HER NEEDS KNOWN. WILL FOLLOW POC
[2019-11-18 09:28] VITALS: BP 145/85
--- NOTE | 2019-11-18 12:00 | NUR ---
RECEIVED IN HALLWAY OUTSIDE OF NURSES STATION. CALM AND COOPERATIVE WITH CARE AND ASSESSMENT. NO BEHAVIORS NOTED. REDIRECT AND REORIENT NEEDED. EATING AT THIS TIME. CONTINUE PLAN OF CARE.
[2019-11-18 18:54] VITALS: BP 116/65
--- NOTE | 2019-11-18 19:30 | NUR ---
RECEIVED IN HALLWAY STANDING AT NURSES STATION REQUESTING SOMETHING TO WRITE WITH. CALM AND COOPERATIVE WITH CARE AND ASSESSMENT. NO DELUSIONAL STATEMENTS VOICED. REDIRECT AND REORIENT NEEDED. RESTING IN BED WITH EYES CLOSED AT THIS TIME. CONTINUE PLAN OF CARE.
--- NOTE | 2019-11-19 07:00 | NUR ---
NAILA SENT REFERRALS TO 22 FACILITIES ON MEDICAID'S LIST FOR TWO COUNTIES PER DTR, EDITH'S, REQUEST.
[2019-11-19 08:34] VITALS: BP 140/80
--- NOTE | 2019-11-19 15:12 | NUR ---
RECEIVED IN HALLWAY OUTSIDE OF NURSES STATION. CALM AND COOPERATIVE WITH CARE AND ASSESSMENT. NO BEHAVIOR ISSUES. REDIRECT AND REORIENT NEEDED. PARTICIPATING IN GROUP AT THIS TIME. CONTINUE PLAN OF CARE.
[2019-11-19 19:39] VITALS: BP 130/57
--- NOTE | 2019-11-19 19:39 | NUR ---
RECEIVED IN DAYROOM. SITTING IN A CHAIR WITH PEERS AT HER SIDE. CALM AND COOPERATIVE WITH CARE AND ASSESSMENT. NO DELUSIONAL STATEMENTS VOICED. REDIRECT AND REORIENT NEEDED. CONTINUES TO SIT CALMLY. CONTINUE PLAN OF CARE.
[2019-11-20 09:30] VITALS: BP 148/79
--- NOTE | 2019-11-20 09:56 | PN ---
PATIENT:CURLY MARQUES MEDICAL RECORD: [id number] LOCATION:[facility] ADMISSION DATE: 09/28/19 PROGRESS NOTE DATE OF SERVICE: 11/19/2019 SUBJECTIVE: The patient's case was discussed with staff. She has no new complaint. OBJECTIVE: The patient is in good behavioral control. She has poor insight about her situation. ASSESSMENT: Dementia. PLAN: The patient will be maintained on current medications. I am going to reduce the dose of her scheduled Haldol slightly. TRANSINT:[id number] Voice Confirmation ID: [id number] DOCUMENT ID: [id number] ELKE PORTILLO MD at 0956 CC: [id number] DICTATION DATE: 11/19/19 1451 RESPIRATORY SUPPORT TECHNICIAN: 11/20/19 0058 ADM IN [address] [address]
[2019-11-20 21:55] VITALS: BP 133/70
--- NOTE | 2019-11-21 08:33 | PN ---
PATIENT:CURLY MARQUES MEDICAL RECORD: [id number] LOCATION:[facility] ADMISSION DATE: 09/28/19 PROGRESS NOTE DATE OF SERVICE: 11/20/2019 SUBJECTIVE: The patient's case was discussed with staff. She has no new complaint. OBJECTIVE: The patient is unchanged clinically and appropriate for discharge. ASSESSMENT: Dementia. PLAN: The patient can be discharged as soon as arrangements are made. TRANSINT:[id number] Voice Confirmation ID: [id number] DOCUMENT ID: [id number] ELKE PORTILLO MD at 0833 CC: [id number] DICTATION DATE: 11/20/19 1515 COTTON INSPECTOR: 11/21/19 0146 ADM IN [place] [id number] [place] [address]
[2019-11-21 10:23] VITALS: BP 131/65
--- NOTE | 2019-11-21 10:28 | NUR ---
NAILA GOT A RESPONSE FROM [facility] WHO HAS MANY FACILITIES IN AREA OF REFERRALS. NAILA SENT UPDATES AND NEGATIVE COVID TEST. SUSANNE STATED SHE WOULD GET BACK WITH PLUMBING AND HEATING CONTRACTOR.
--- NOTE | 2019-11-21 13:20 | NUR ---
Nutrition Follow-up: Diet: Diabetic PO intake: 100% x last 7 meals Last BM: 11/17/19. Wt: 255# (11/18/19); Admit Wt: 250# (09/28/19) Meds noted: glipizide. Labs noted: POC Glu 87(WNL) Recommend continue current diet. RD following.
--- NOTE | 2019-11-21 15:45 | NUR ---
NAILA RECIEVED AN EMAIL FROM [facility] STATING [facility] WILL ACCEPT PT BUT THEY ARE WAITING ON A CALL FROM THE MEDICAID SPECIAL EDUCATOR. SOON THEY GET THE CALL THEY WILL ALERT THE DTR AND SHE MIGHT CAN DISCHARGE TOMORROW. NAILA CONTACTED AND ASKED FOR DISCHARGE ORDER TO BE PUT IN.
[2019-11-21] MEDS ORDERED: HALOPERIDOL1 MG PO (16:24)
[2019-11-21] MEDS ORDERED: DEPAKOTE500 MG PO ×2 (16:24)
[2019-11-21] MEDS ORDERED: HALDOL DECAN50 MG/ML IM (16:24)
[2019-11-21] MEDS ORDERED: NAMENDA5 MG PO (16:24)
[2019-11-21] MEDS ORDERED: MYCOSTATIN CREA15 GM TOPICAL (16:25)
--- NOTE | 2019-11-21 17:05 | NUR ---
IS ORIENTED TO PERSON,PLACE,AND TIME.POOR INSITE TO WHY SHE IS HERE.STATES"I DON'T BELIEVE ANYTHING IS WRONG WITH ME." IS COMPLIANT WITH STAFF AND MEDS.1+EDEMA TO BILAT FEET.WILL CONTINUE WITH CURRENT PLAN OF CARE,MONITOR FOR CHANGES AND SAFETY.
[2019-11-21 20:38] VITALS: BP 127/52
--- NOTE | 2019-11-21 21:26 | NUR ---
RECEIVED PATIENT IN DAYROOM, QUIET, CALM, WATCHING T.V. DOES NOT SOCIALIZE MUCH WITH OTHERS. COMPLIANT WITH MEDS. WILL FOLLOW POC
[2019-11-22 08:16] VITALS: BP 127/76
--- NOTE | 2019-11-22 10:05 | NUR ---
NURSE AND TECH WHEELED PT OUT TO FRONT [place] AWAITING DAUGHTER TO RUG DYER HELPER PATIENT. PAPERWORK FAXED TO FAC[facility]. PAPER COPY GIVEN TO DAUGHTER. PT BELONGINGS GIVEN TO PT. PT WAS CRYING STATING THERE WERE HAPPY TEARS. NURSE AND TECH WALKED PT TO CAR FROM THE FRONT DOOR. PAPERWORK ON THE FRONT OF [place]. WILL CALL REPORT TO [facility].
--- NOTE | 2019-11-22 10:25 | NUR ---
SW HAS RECIEVED DECLINES FROM REFERRALS YESTERDAY. [facility], [facility], [facility], [facility] IN [place], [facility]. SW ALERTED DTR AND HAS BEEN COMMUNICATING WITH DTR THROUGH EMAILS DUE TO HER BEING ON A CONFERENCE CALL FOR WORK.
--- NOTE | 2019-11-22 10:33 | NUR ---
NAILA RECIEVED A PHONE CALL FROM PT'S DTR THIS MORNING THAT STATED SHE WAS IN THE FRONT OF THE HOSPITAL TO SELLING MANAGER PT. NAILA STATED SHE WOULD HAVE TO GET THE PAPERWORK READY AND REPORT CALLED BEFORE PT COULD DISCHARGE. EDITH STATED SHE WOULD STAY UP FRONT UNTIL PT IS READY AND VERBALIZED UNDERSTANDING. NAILA CHECKED HER EMAIL WHILE ON THE PHONE AND STATED SHE RECIEVED AN EMAIL FROM [facility]ANNE AROUND 615 LAST NIGHT, SO PT WAS NOT PACKED UP AND READY TO DISCHARGE FOR THIS MORNING. EDITH VERBALIZED UNDERSTANDING.
--- NOTE | 2019-11-22 11:13 | NUR ---
NURSE CALLED REPORT TO LALO AT [facility]. NURSE GAVE A HISTORY ON PT. PT WAS ADMITTED ON 09/28/2019. NURSE REPORT BEHAVIORS, CURRENT WEIGHT, ALLERGIES, CODE STATUS, DIET, AMBULATION STATUS, ADLS STATUS AND ORIENTATION. PT LEFT AN HOUR PRIOR TO REPORT. NURSE TOLD LALO THAT THE PAPERWORK WAS FAXED PRIOR AND THAT A PAPER COPY WAS BEING SENT WELL.
--- NOTE | 2019-11-22 15:23 | PN ---
PATIENT:CURLY MARQUES MEDICAL RECORD: [id number] LOCATION:[facility] ADMISSION DATE: 09/28/19 PROGRESS NOTE DATE OF SERVICE: 11/21/2019 SUBJECTIVE: The patient's case was discussed with staff. She has no new complaint. OBJECTIVE: The patient is going to be transitioned out of the hospital tomorrow. There is a facility that has accepted her. TRANSINT:[id number] Voice Confirmation ID: [id number] DOCUMENT ID: [id number] ELKE PORTILLO MD at 1523 CC: [id number] DICTATION DATE: 11/21/19 1621 NICKEL PLANT OPERATOR: 11/22/19 0123 DIS IN 11/22/19 [facility] [address] [place] [address]
== END 2019-11-22 10:05 | DRG 57 ==
LOC: D.ER 09:28 → D.PSYCH 09:48
PROVIDERS: Family Medicine; ADMIT Psychiatry & Neurology Psychiatry; ATTEND Psychiatry & Neurology Psychiatry
DX: G30.9 Alzheimer's disease, unspecified (principal); F02.80 Dementia in other diseases classified elsewhere, unspecified severity, without behavioral disturbance, psychotic disturbance, mood disturbance, and anxiety; E11.9 Type 2 diabetes mellitus without complications; M17.0 Bilateral primary osteoarthritis of knee; I11.0 Hypertensive heart disease with heart failure; I50.9 Heart failure, unspecified; J02.9 Acute pharyngitis, unspecified; D72.829 Elevated white blood cell count, unspecified; E78.5 Hyperlipidemia, unspecified; M10.9 Gout, unspecified; I49.9 Cardiac arrhythmia, unspecified; K21.0 Gastro-esophageal reflux disease with esophagitis; E66.01 Morbid (severe) obesity due to excess calories; B37.9 Candidiasis, unspecified